=== PATIENT | male | born 1960 | race Caucasian/White ===

== ENCOUNTER 2018-08-20 13:23 | Emergency (ER) | payer BC, SELFPAY ==
[2018-08-20 13:25] VITALS: BP 138/71; PULSE 70; RESP 18; TEMP 36.8; O2SAT 97; BMI 31.4
--- NOTE | 2018-08-20 13:53 | ED.DCSUM_ITS ---
- ER Visit Summary Date of Service: 08/20/18 Chief Complaint: Left-sided back pain History of Present Illness: The patient is a 58 M presents to the emergency department for 1 week of left-sided back pain. Patient states he was walking outside stakes on the grill. He states he opened the door and felt something pull in the left side of his upper back. Since then, he has had a persistent pain. He states it is worse if he lays or moves a certain way. He is been nauseated because of the pain. The patient does admit to history of prior disc rupture and states this feels similar. He denies any history of coronary vascular disease. He denies leg swelling orthopnea. Physical Examination: Vital signs reviewed General: Well-nourished, well-developed Head: Normocephalic, atraumatic Eyes: Pupils equal and reactive, extraocular muscles intact Neck, supple, no lymphadenopathy Heart: Regular rate and rhythm Respiratory: No distress, clear bilaterally Abdomen: Soft, nontender, nondistended, no peritoneal signs Back: Nontender Extremities: Nontender, no edema, no cords Skin: Normal color no rash Neuro: Alert and oriented, no focal or lateralizing deficits Test Results: [] Emergency Department Course and Treatment: The patient's pain does seem entirely muscular. EKG was obtained that showed sinus rhythm without acute ischemia. It was unchanged from prior. However, given the patient's age and the fact that was radiated to his chest did want to rule out dangerous process. Rib series was unremarkable. Screening labs including cardiac enzymes were normal. Patient had pain that is been constant and worse with motion for 7 days. I do feel that this effectively rules him out for acute coronary syndrome. However, the patient's d-dimer was elevated. He underwent CTA which shows no evidence of pulmonary embolus. I am going to treat the patient symptomatically with a short course of analgesics and antispasmodics. He is counseled on concerning symptoms and reasons to return. He will be discharged home. Treatment Plan: [] Disposition: Discharge Impression: 1. Acute thoracic strain This note was generated with [employer] software. It may contain incorrect words, spelling, and punctuation that were not noted in review of the chart prior to signing ED Disposition - Plan for ED Patient: Instructions: BACK SPASM, No Trauma Prescriptions: Prednisone [Deltasone] 60 mg PO DAILY #15 tab Prescription Printed cycloBENZAPRine HCl [Flexeril] 10 mg PO TID PRN #20 tab PRN Reason: Muscle Spasm Prescription Printed Oxycodone HCl/Acetaminophen [Percocet 5/325] 1 tab PO Q6H PRN PRN 3 Days #12 tab PRN Reason: Pain Prescription Printed Referrals: Care Physician,No Primary [Primary Care Provider] -
[2018-08-20] MEDS: 0.9% Normal Saline 1,000 ML 1000 ML IV (14:21)
[2018-08-20] MEDS: Morphine 4 MG/ML Syringe IV (14:21)
[2018-08-20] MEDS: proMETHazine 25 MG/ML Syringe 12.5 MG IV (14:22)
[2018-08-20 14:23] LABS: Absolute Lymphocyte Count 2.19 X10^3/ul (0.83-4.51); Absolute Neutrophil Count 7.8 X10^3/uL (2.0-7.7); Basophil# 0.02 X10^3/uL; Basophil% 0.2 % (0-1); Eosinophil# 0.19 X10^3/uL; Eosinophils% 1.7 % (0-5); Hemoglobin 15.2 g/dl (13.0-16.5); Lymphocyte # 2.19 X10^3/ul (4.0); Lymphocyte % 19.9 % (19-41); Mean Corp Hgb Conc 33.8 g/gl (32-36); Mean Corpuscular Hgb 33.1 pg (27.0-32.0); Mean Platelet Vol. 10.1 fl (6.2-12.0); Monocyte# 0.77 X10^3/uL; Platelet Count 208 K/mm3 (150-450); RBC Distribution Width CV 14.7 % (11.6-14.6); RBC Distribution Width SD 52.8 fl (35.1-43.9); Red Blood Count 4.59 M/mm3 (4.6-6.2)
[2018-08-20 14:25] LABS: POSITIVE COUNT NO; POSITIVE DIFFERENTIAL NO; POSITIVE MORPHOLOGY NO
--- NOTE | 2018-08-20 14:30 | RAD_ITS ---
STUDY: X-RAY - UNILATERAL RIBS ( LEFT ) WITH CHEST REASON FOR EXAM: Male, 58 years old. Mid-level chest, back and rib pain TECHNIQUE - RIBS: 4 view(s) of the ribs. TECHNIQUE - CHEST: PA chest COMPARISON: 02/03/2013 FINDINGS - RIBS: No reported trauma. There is no apparent rib fracture. No apparent lytic or blastic rib lesion. FINDINGS - CHEST: Clear lungs are somewhat hyperlucent and hyperinflated with hemidiaphragm flattening suggesting underlying COPD. Normal cardiomediastinal silhouette, redd and pleural margins. Unremarkable shoulder girdle and spine. RAD/Ribs Uni Min 3V w/PA Chest IMPRESSION: RIBS: No visible fracture or suspicious lesion. CHEST: Suspected underlying COPD/emphysema. Chronic smoking history. No acute cardiopulmonary process. Electronically Signed: Bert Montez MD at 15:25 EDT Tel , Service support ,
[2018-08-20 14:36] LABS: ALB/GLOB Ratio 1.2 RATIO (0.9-2.4); AST(SGOT) 9 U/L (15-37); Alanine Aminotransfer ALT/SGPT 21 U/L (16-61); Albumin, Serum 3.7 g/dL (3.2-5.0); Alkaline Phosphatase 62 U/L (45-117); Anion Gap 5 (5-15); BUN 18 mg/dL (7-18); BUN/Creat Ratio 21.5 RATIO (10-20); Calcium,Total 9.3 mg/dL (8.5-10.1); Chloride 109 mmol/L (98-107); Creatinine, Serum 0.84 mg/dL (0.70-1.30); EST Glomerular Filtration Rate 100 mL/min (>60); Est Glom Filt Rate - Afr Amer 121 mL/min (>60); Estimated Creatinine Clearance 109.65 ml/min; Globulin 3.2 g/dL (2.2-4.2); Glucose 122 mg/dL (74-106); Protein, Total 6.9 g/dL (6.4-8.2); Sodium Level 140 mmol/L (136-145)
[2018-08-20 14:56] LABS: D-Dimer Quantitative (DVT/PE) 0.69 FEU/ug/m (0.27-0.49)
--- NOTE | 2018-08-20 14:57 | CT_ITS ---
STUDY: CTA CHEST REASON FOR EXAM: Male, 58 years old. Left back pain radiating to the left rib, nausea, difficulty sitting. History of GERD. Chest pain. RADIATION DOSAGE (If Supplied By Facility): CTDIvol = ( 18.53 ) mGy, DLP = ( 540.69 ) mGycm TECHNIQUE: The examination was performed with the intravenous administration of 100 IV Isovue 300. Post-processing of the angiographic images was performed, with multiplanar reformation and 3D reconstruction. Individualized dose optimization techniques were used for this CT. COMPARISON: X-ray ribs and chest 08/20/2017, x-ray chest 02/03/2013, CT abdomen and pelvis 03/27/2012 FINDINGS: Supraclavicular: Heterogeneity of the thyroid gland without dominant nodule, possibly a manifestation of thyroiditis or mild goitrous changes. Body wall soft tissues: No acute process. Upper abdomen: There is evidence of hepatic steatosis. Osseous structures: Mild thoracic spondylosis. Normal ribs. No acute osseous process. Mediastinum: Normal esophagus. A few shotty lymph nodes are present in the mediastinum, not pathologically enlarged. There is no apparent hilar lymphadenopathy. Heart: No cardiomegaly or pericardial effusion. Normal coronary artery origins and branching anatomy with right coronary dominance. Trace arthroscopic calcification. Aorta: Normal. Pulmonary arteries: Ectatic central pulmonary arteries, main pulmonary artery 3.7 cm. There is no large central embolus. There is no evidence of peripheral pulmonary embolus. Lungs: There are mild features of paraseptal emphysema predominating at the apices. The lungs are acutely clear. There is mild chronic bronchial wall thickening, chronic inflammatory. Airways otherwise unremarkable. CT/CTA Chest W/WO Contrast IMPRESSION: No acute cardiopulmonary process is evident. There is no evidence of aortic dissection or pulmonary embolus. Trace coronary atherosclerosis with normal coronary artery branching anatomy and normal cardiac chamber morphology. Ectasia of the central pulmonary arteries suggesting a component of pulmonary arterial hypertension likely associated with emphysematous disease. Features of paraseptal emphysema. Electronically Signed: Bert Montez MD at 15:54 EDT Tel , Service support ,
[2018-08-20] MEDS: Ketorolac 15 MG/ML Vial IV (15:51)
--- NOTE | 2018-08-20 16:39 | ED.VISSUMM ---
- ER Visit Summary Date of Service: 08/20/18 Chief Complaint: [] History of Present Illness: The patient is a 58 M [] Physical Examination: [] Test Results: [] Emergency Department Course and Treatment: [] Treatment Plan: [] Disposition: [] Impression: [] This note was generated with [employer] dictation software. It may contain incorrect words, spelling, and punctuation that were not noted in review of the chart prior to signing ED Disposition - Plan for ED Patient: Instructions: BACK SPASM, No Trauma Prescriptions: Prednisone [Deltasone] 60 mg PO DAILY #15 tab Prescription Printed cycloBENZAPRine HCl [Flexeril] 10 mg PO TID PRN #20 tab PRN Reason: Muscle Spasm Prescription Printed Oxycodone HCl/Acetaminophen [Percocet 5/325] 1 tab PO Q6H PRN PRN 3 Days #12 tab PRN Reason: Pain Prescription Printed proMETHazine tablet [Phenergan] 25 mg PO Q6H PRN PRN #10 tab PRN Reason: Nausea Prescription Printed Referrals: Care Physician,No Primary [Primary Care Provider] -
[2018-08-20 16:42] VITALS: BP 122/68; PULSE 55; RESP 17; O2SAT 95
== END 2018-08-20 16:43 | disposition home or self-care (01) ==
PROVIDERS: Emergency Provider Emergency Medicine
DX: S29.012A Strain of muscle and tendon of back wall of thorax, initial encounter (principal); R06.00 Dyspnea, unspecified; R11.0 Nausea; R79.89 Other specified abnormal findings of blood chemistry; X58.XXXA Exposure to other specified factors, initial encounter; Y93.9 Activity, unspecified; Y92.9 Unspecified place or not applicable; Z72.0 Tobacco use
CPT/HCPCS: 71101; 71275; 80053; 84484; 85025; 85379; 93005; 96361; 96374; 96375; 99284; J7030; Q9967; A4216

== ENCOUNTER 2023-01-14 16:17 | Emergency (ER) | payer BC, SELFPAY ==
[2023-01-14 16:19] VITALS: BP 168/83; PULSE 58; RESP 18; TEMP 36.7; O2SAT 98; BMI 30.7
--- NOTE | 2023-01-14 16:54 | CT_ITS ---
INDICATION: abdominal pain -- IV PO Contrast EXAMINATION: CT ABDOMEN AND PELVIS WITH CONTRAST - CT Abdomen And Pelvis W/ Contrast Injection TECHNIQUE: Helically acquired images were obtained of the abdomen and pelvis following IV contrast. A radiation dose optimization technique was used for this scan. IV Contrast dosage and agent: 100 cc Isovue-370 Oral contrast: Gastrografin. COMPARISON: None. FINDINGS: LOWER CHEST: Basilar atelectasis or scarring. No cardiomegaly or pericardial effusion. LIVER: Focal area of possible enhancement adjacent to gallbladder left hepatic lobe measuring 1.6 x 1.8 cm image 55 series 2, coronal image 30 series 601. GALLBLADDER AND BILIARY TREE: No calcified gallstones. No gallbladder distension or wall edema. No intra- or extrahepatic biliary ductal dilation. PANCREAS: No focal cystic or solid mass. SPLEEN: Normal size without focal cystic or solid mass. ADRENAL GLANDS: No nodules. KIDNEYS AND URETERS: Normal renal size and position. No hydronephrosis. Bilateral renal cysts. PERITONEUM: No ascites or free air. No other fluid collection. BOWEL: No evidence of acute appendicitis. Tiny calcification identified within the appendix image 84 series 2. No surrounding inflammatory change. No stomach or bowel distension. No focal inflammatory change. Diverticulosis without diverticulitis. LYMPH NODES: No enlarged mesenteric or retroperitoneal lymph nodes. VESSELS: Aorta is non-dilated. Atherosclerosis. Ureters. URINARY BLADDER: Unremarkable. REPRODUCTIVE ORGANS: No pelvic masses. ABDOMINAL WALL: No discrete abdominal or pelvic wall hernia. BONES: No lytic or blastic abnormality. Degenerative changes of the spine are present. CT/Abdomen/Pelvis WITH Contrast IMPRESSION: No acute focal inflammatory process is identified within the abdomen or pelvis. Question focal hepatic lesion, not characterized. It is conceivable that this is related to fatty sparing. In the absence of prior studies demonstrating stability, consider follow-up MRI non-emergently if this patient is a candidate. Electronically Signed: Tobin Sutton MD at 19:32 EST ,
[2023-01-14] MEDS: Ondansetron 4 MG/2 ML Vial IV (17:03)
--- NOTE | 2023-01-14 17:08 | EX.ED.DYSGE1 ---
HPI History of Present Illness Chief Complaint: Nausea/Vomiting Informant: patient Narrative Narrative: 62-year-old male presenting to the emergency room with abdominal pain and nausea. Patient states that in years past he was diagnosed twice with stomach ulcers at the junction box. He states that he gave up drugs and alcohol years ago. He is a smoker. He states that earlier the past couple months and more so over the last month he wakes up each morning with nausea. He states that if he is able to get something to eat the nausea surpasses and is able to go throughout his day. However if he starts to vomit he is nauseous almost all day. He notes no pain with it but then he starts to tell me how he has lower abdominal pain. No weight gain no weight loss. No black or bloody stools. No diarrhea or mucousy stools. He states that his thinks he may have Crohn's. He states that he has a dairy intolerance. He used to take promethazine which would help him in the past. Lately he has been trying cannabis in the morning but states it runs his whole day is not able to get much done. He reports a colonoscopy about 7 years ago at an outside facility. He states that they found polyps but otherwise negative. [facility] Medical History History of cocaine abuse Home Medications cyclobenzaprine 10 mg tablet 10 mg PO TID PRN Muscle Spasm #20 tabs 08/20/18 [Rx Last Taken Unknown] prednisone 20 mg tablet 60 mg (3 x 20 mg) PO DAILY #15 tabs 08/20/18 [Rx Last Taken Unknown] promethazine 25 mg tablet 25 mg PO Q6H PRN PRN Nausea #10 tabs 08/20/18 [Rx Last Taken Unknown] Allergy/AdvReac Type Severity Reaction Status Date / Time Penicillins Allergy Unknown Verified 01/14/23 16:19 Social History Smoking Status: Current every day smoker tobacco type: cigarettes ROS ROS ED Constitutional Constitutional ED: Denies chills, fever(s) or weight loss Eyes Eyes: Denies change in vision or diplopia ENT ENT ED: Denies ear pain, rhinorrhea or sore throat Cardiovascular Cardiovascular: Denies chest pain, orthopnea, palpitations or racing heartbeat Respiratory/Chest Respiratory/Chest: Denies cough, dyspnea or orthopnea Gastrointestinal Gastrointestinal: Reports abdominal pain and nausea; Denies diarrhea or vomiting Genitourinary Genitourinary ED: Denies dysuria, hematuria or urinary frequency Musculoskeletal Musculoskeletal: Denies arthralgias, back pain, myalgias or neck pain Integumentary Denies abscess or rash Neurologic Neurologic: Denies headache(s) or weakness Psychiatric Psychiatric: Denies anxiety, depression, suicidal ideation or suicidal thoughts Endocrine Endocrinology: Denies polydipsia, polyphagia or polyuria Allergic/Immunologic Allergic/Immunologic ED: Denies mouth swelling, tongue swelling or urticaria EXAM Physical Exam Const Vital Signs: 01/14/23 16:19 Temperature 98.0 F Temperature Source Temporal Pulse Rate 58 L Respiratory Rate 18 Blood Pressure 168/83 H Blood Pressure Mean 111 Pulse Ox 98 Oxygen Delivery Method Room Air Discharge Plan Triage Chief Complaint: Nausea/Vomiting ED Provider: Rogelio Murillo Dx/Rx/DC Orders Prescriptions: No Action cyclobenzaprine 10 MG tablet 10 mg PO TID PRN (Reason: Muscle Spasm) Qty: 20 0RF prednisone 20 MG tablet 60 mg PO DAILY Qty: 15 0RF Rx Instructions: With food promethazine 25 MG tablet 25 mg PO Q6H PRN PRN (Reason: Nausea) Qty: 10 0RF Primary Care Provider: Care Physician,No Primary Referrals: Care Physician,No Primary [Primary Care Provider] -
[2023-01-14 17:11] LABS: Absolute Lymphocyte Count 1.73 X10^3/uL (0.83-4.51); Basophil# 0.05 X10^3/uL; Basophil% 0.8 % (0-1); Eosinophils% 1.6 % (0-5); Hematocrit 46.1 % (40-54); Hemoglobin 15.1 g/dL (13.0-16.5); Lymphocyte # 1.73 X10^3/ul (0.83-4.51); Lymphocyte % 26.9 % (19-41); Mean Corp Hgb Conc 32.8 g/dL (32-36); Mean Corpuscular Hgb 32.3 pg (27.0-32.0); Mean Corpuscular Volume 98.5 fL (80-94); Mean Platelet Vol. 10.2 fl (6.2-12.0); Monocyte# 0.56 X10^3/uL; Monocyte% 8.7 % (0-10); NRBC Flagged by Analyzer 0 % (0-5); Neutrophil # 3.96 X10^3/uL (2.7-7.7); Neutrophil % 61.7 % (47-70); Platelet Count 218 K/mm3 (150-450); RBC Distribution Width SD 51.2 fl (35.1-43.9); Red Blood Count 4.68 M/mm3 (4.6-6.2); White Blood Count 6.4 K/mm3 (4.4-11.0)
[2023-01-14 17:27] LABS: AST(SGOT) 13 U/L (15-37); Alanine Aminotransfer ALT/SGPT 19 U/L (16-61); Albumin, Serum 3.5 g/dL (3.2-5.0); Alkaline Phosphatase 68 U/L (45-117); Anion Gap 3 (5-15); BUN 11 mg/dL (7-18); BUN/Creat Ratio 12.5 RATIO (10-20); Bilirubin, Direct 0.09 mg/dL (0.00-0.30); Calcium,Total 8.5 mg/dL (8.5-10.1); Chloride 109 mmol/L (98-107); Creatinine, Serum 0.88 mg/dL (0.70-1.30); EST Glomerular Filtration Rate 93 mL/min (>60); Est Glom Filt Rate - Afr Amer 113 mL/min (>60); Estimated Creatinine Clearance 99.62 ml/min; Globulin 3.5 g/dL (2.2-4.2); Glucose 132 mg/dL (74-106); Lipase 16 U/L (13-75); Potassium 3.6 mmol/L (3.5-5.1); Sodium Level 139 mmol/L (136-145)
[2023-01-14] MEDS: proMETHazine 25 MG Tablet PO (18:18)
[2023-01-14 19:24] VITALS: BP 179/97; PULSE 55; RESP 16; O2SAT 97
[2023-01-14] MEDS: Ketorolac 30 MG/ML Syringe IV (20:00)
[2023-01-14 20:03] VITALS: BP 140/77; PULSE 52; RESP 16; O2SAT 97
== END 2023-01-14 20:36 | disposition home or self-care (01) ==
PROVIDERS: Emergency Provider Emergency Medicine; Visit Provider Emergency Medicine
DX: R11.2 Nausea with vomiting, unspecified (principal); F17.210 Nicotine dependence, cigarettes, uncomplicated
CPT/HCPCS: 74177; 80048; 80076; 83690; 85025; 96374; 96375; 99283; Q9967; A4216; J2405

== ENCOUNTER 2023-01-18 07:02 | Emergency (ER) | payer BC, SELFPAY ==
[2023-01-18 07:03] VITALS: BP 145/83; PULSE 67; RESP 14; TEMP 36.2; O2SAT 97; BMI 29.6
--- NOTE | 2023-01-18 07:50 | EX.ED.DYSGE1 ---
HPI History of Present Illness Chief Complaint: Nausea/Vomiting Informant: patient and spouse/S.O. Narrative Narrative: Presents to ED recurrent vomiting. He has been having nausea for a month states for the past week has been having intermittent vomiting. He was seen in the ED here 5 days ago. Had lab work and a CAT scan. He states he was sent home with 4 medications. Initially was feeling better however went home vomiting started again. He states he vomited probably 100 times. He has been having very small bowel movements twice a day nonbloody. States when he vomits or may be streaks of blood. However nothing heavy. Denies alcohol history. Denies abdominal pain. He was able to eat little bit yesterday however since then unable keep things down. No abdominal surgeries. Review of records sent home Carafate pantoprazole as needed Phenergan and diclofenac. He is given follow-up with eye. [facility] Medical History History of cocaine abuse Home Medications NK 01/14/23 [History Last Taken Unknown] diclofenac sodium 50 mg tablet,delayed release 50 mg PO BID PRN pain #30 tabs 01/14/23 [Rx Last Taken Unknown] pantoprazole 40 mg tablet,delayed release (Protonix) 40 mg PO DAILY #30 tabs 01/14/23 [Rx Last Taken Unknown] promethazine 25 mg tablet 25 mg PO TID PRN nausea and vomiting #30 tabs 01/14/23 [Rx Last Taken Unknown] sucralfate 1 gram tablet (Carafate) 1 g PO QHS PRN #30 tabs 01/14/23 [Rx Last Taken Unknown] Allergy/AdvReac Type Severity Reaction Status Date / Time Penicillins Allergy Unknown Verified 01/18/23 07:04 Social History Smoking Status: Current every day smoker tobacco type: cigarettes ROS ROS ED Constitutional Constitutional ED: Denies chills, fever(s) or sweats Eyes Eyes: Denies change in vision ENT ENT ED: Denies dysphagia or sore throat Cardiovascular Cardiovascular: Denies chest pain, leg edema, palpitations or racing heartbeat Respiratory/Chest Respiratory/Chest: Denies cough, dyspnea or dyspnea on exertion Gastrointestinal Gastrointestinal: Reports nausea and vomiting; Denies abdominal pain or diarrhea Genitourinary Genitourinary ED: Denies dysuria, hematuria or urinary frequency Musculoskeletal Musculoskeletal: Denies back pain, extremity pain or neck pain Integumentary Denies rash or wounds Neurologic Neurologic: Denies headache(s), paresthesias or weakness EXAM Physical Exam Const Vital Signs: 01/18/23 07:03 01/18/23 10:50 01/18/23 12:16 Temperature 97.2 F L Temperature Source Temporal Pulse Rate 67 68 82 Respiratory Rate 14 17 16 Blood Pressure 145/83 H 125/79 H 124/79 H Blood Pressure Mean 103 94 94 Pulse Ox 97 98 97 Oxygen Delivery Method Room Air Room Air Positive well nourished and well developed General Appearance ED: well developed and NAD HEENT Reports dry mucous membranes normocephalic and atraumatic Mouth ED: Yes dry mucous membranes Mouth: dry mucous membranes Eyes PERRL, EOMs intact bilaterally and conjunctivae normal General Eye ED: Yes normal appearance of both eyes Neck no lymphadenopathy and supple General: Negative for tenderness Chest Wall Chest: Negative for tenderness Resp normal respiratory effort and normal air movement Effort and Inspection: symmetric chest movement; Negative for respiratory distress Cardio regular rate, regular rhythm and no murmurs Peripheral Pulses: pulses 2+ throughout GI normal to inspection, nondistended, normoactive bowel sounds and non-tender GI Narrative: Negative Lamas's or McBurney's tenderness. No guarding or rebound. Palpation: Negative for guarding or rebound tenderness present Back/Spine no CVA tenderness and no thoracic nor lumbar tenderness Extremity normal to inspection General Extremety ED: Negative for edema or tenderness General Extremity: Negative for edema Neuro oriented x3 and no sensory deficits noted Sensorium / Orientation: awake and alert Skin no rashes or lesions noted and no wounds MDM MDM MDM Narrative Medical decision making narrative: Interventions / MDM: Differential diagnosis: Dehydration, electrolyte abnormalities Diagnosis considered but do not suspect: No clinical cholecystitis. My EKG interpretation: N/A Imaging independently reviewed and interpreted by myself: N/A External documents reviewed: Review of records from ED CT scan abdomen pelvis with oral and IV contrast showed no acute process. Abdominal laboratory studies were all normal including kidney function. Test considered but not ordered:N/A ED course: Patient dry mucosal membranes with vomiting has a nonsurgical abdomen. IV will be established for fluids Zofran given. Abdominal labs obtained for further evaluation. 0940: Abdominal labs are all normal. Reevaluation is still having nausea and vomiting and lower abdominal cramping. Still soft. Will order labs and additional antiemetic. Will reevaluate. 1045: Intermittent bouts of retching heard. Reevaluation no vomiting however feels nausea again. Further discussion with the patient he started marijuana use 3 weeks ago stating for nausea. Discussed effects could be similar to his symptoms due to marijuana use. Will use capsaicin and Haldol. 1145: Reevaluation clinically feeling much better symptoms are resolved. He was using marijuana twice a day for the last 3 weeks. He will stop this. We will p.o. challenge before discharge. Patient tolerated oral fluids well. He will refrain from marijuana. He has prescriptions for Phenergan at home. He is on Carafate and pantoprazole. He is given GI for follow-up. He is sent home with capsaicin cream. Re-evaluation: stable Disposition discussed with patient/family/significant other: Patient and spouse Case discussed with consulting clinician: N/A This note was generated with [employer] dictation software. It may contain incorrect words, spelling, and punctuation that were not noted in checking the note before signing. Lab Data Attestation: I reviewed the patient's lab results. Labs: Laboratory Results - last 24 hr 01/18/23 08:00 WBC 10.9 RBC 4.93 Hgb 16.2 Hct 48.3 MCV 98.0 H MCH 32.9 H MCHC 33.5 RDW Std Deviation 51.8 H RDW Coeff of Tiffany 14.2 Plt Count 220 MPV 10.8 Immature Gran % (Auto) 0.400 Neut % (Auto) 80.7 H Lymph % (Auto) 12.2 L Trimble % (Auto) 5.7 Eos % (Auto) 0.6 Baso % (Auto) 0.4 Absolute Neuts (auto) 8.8 H Absolute Lymphs (auto) 1.33 Nucleated RBC % 0 Sodium 137 Potassium 3.9 Chloride 109 H Carbon Dioxide 22.0 Anion Gap 6 BUN 13 Creatinine 0.95 Estim Creat Clear Calc 92.28 Est GFR (MDRD) Af Amer 104 Est GFR (MDRD) Non-Af 86 BUN/Creatinine Ratio 13.7 Glucose 143 H Calcium 9.6 Total Bilirubin 0.50 AST 19 ALT 22 Alkaline Phosphatase 72 Total Protein 7.7 Albumin 3.8 Globulin 3.9 Albumin/Globulin Ratio 1.0 Lipase 12 L Discharge Plan Triage Chief Complaint: Nausea/Vomiting ED Provider: Guerrero Humphreys Dx/Rx/DC Orders Clinical Impression: Marijuana use, Abdominal pain, Cannabinoid hyperemesis syndrome Instructions: Cannabinoid Hyperemesis Syndrome Prescriptions: No Action NK diclofenac sodium 50 mg tablet,delayed release (DR/EC) 50 mg PO BID PRN (Reason: pain) Qty: 30 0RF pantoprazole [Protonix] 40 mg tablet,delayed release (DR/EC) 40 mg PO DAILY Qty: 30 0RF sucralfate [Carafate] 1 gram tablet 1 g PO QHS PRN Qty: 30 0RF promethazine 25 mg tablet 25 mg PO TID PRN (Reason: nausea and vomiting) Qty: 30 0RF Primary Care Provider: Care Physician,No Primary Referrals: Gene Jiménez DO [Med Staff - Active Staff] - 1-2 Weeks Care Physician,No Primary [Primary Care Provider] - Activity Restrictions/Additional Instructions: Labs are stable, you admit to starting marijuana for last 3 weeks prior to symptoms starting. Stop marijuana use. Patient oral fluids for hydration at home. Follow-up with Dr. Jiménez as given to you on your last visit. Home medications as prescribed. Disposition Disposition: Home, Self Care Discharge Date/Time: 01/18/23 12:20
[2023-01-18] MEDS: 0.9% Normal Saline (1000mL) 1,000 ML 1000 ML IV (08:05)
[2023-01-18] MEDS: Ondansetron 4 MG/2 ML Vial IV (08:05)
[2023-01-18 08:08] LABS: Absolute Lymphocyte Count 1.33 X10^3/uL (0.83-4.51); Absolute Neutrophil Count 8.8 X10^3/uL (2.0-7.7); Basophil# 0.04 X10^3/uL; Basophil% 0.4 % (0-1); Eosinophil# 0.06 X10^3/uL; Eosinophils% 0.6 % (0-5); Hematocrit 48.3 % (40-54); Hemoglobin 16.2 g/dL (13.0-16.5); Lymphocyte # 1.33 X10^3/ul (0.83-4.51); Lymphocyte % 12.2 % (19-41); Mean Corp Hgb Conc 33.5 g/dL (32-36); Mean Corpuscular Hgb 32.9 pg (27.0-32.0); Mean Platelet Vol. 10.8 fl (6.2-12.0); Monocyte# 0.62 X10^3/uL; Monocyte% 5.7 % (0-10); NRBC Flagged by Analyzer 0 % (0-5); Neutrophil % 80.7 % (47-70); Platelet Count 220 K/mm3 (150-450); RBC Distribution Width CV 14.2 % (11.6-14.6); RBC Distribution Width SD 51.8 fl (35.1-43.9); Red Blood Count 4.93 M/mm3 (4.6-6.2); White Blood Count 10.9 K/mm3 (4.4-11.0)
[2023-01-18 08:45] LABS: Albumin, Serum 3.8 g/dL (3.2-5.0); BUN 13 mg/dL (7-18); BUN/Creat Ratio 13.7 RATIO (10-20); Creatinine, Serum 0.95 mg/dL (0.70-1.30); EST Glomerular Filtration Rate 86 mL/min (>60); Est Glom Filt Rate - Afr Amer 104 mL/min (>60); Estimated Creatinine Clearance 92.28 ml/min; Globulin 3.9 g/dL (2.2-4.2); Glucose 143 mg/dL (74-106); Protein, Total 7.7 g/dL (6.4-8.2)
[2023-01-18 08:46] LABS: AST(SGOT) 19 U/L (15-37); Alanine Aminotransfer ALT/SGPT 22 U/L (16-61); Alkaline Phosphatase 72 U/L (45-117); Anion Gap 6 (5-15); Calcium,Total 9.6 mg/dL (8.5-10.1); Chloride 109 mmol/L (98-107); Lipase 12 U/L (13-75); Potassium 3.9 mmol/L (3.5-5.1); Sodium Level 137 mmol/L (136-145)
[2023-01-18] MEDS: Metoclopramide 10 MG/2 ML Vial 5 MG IV (10:22)
[2023-01-18] MEDS: Hyoscyamine Sulfate 0.125 MG Tablet 0.25 MG SL (10:22)
[2023-01-18 10:50] VITALS: BP 125/79; PULSE 68; RESP 17; O2SAT 98
[2023-01-18] MEDS: Haloperidol Lactate 5 MG/ML Vial 2 MG IV (10:51)
[2023-01-18] MEDS: Capsaicin 0.025% 1 APPLIC Tube TOPICAL (11:17)
[2023-01-18 12:16] VITALS: BP 124/79; PULSE 82; RESP 16; O2SAT 97
== END 2023-01-18 12:20 | disposition home or self-care (01) ==
PROVIDERS: Emergency Provider Emergency Medicine; Visit Provider Emergency Medicine
DX: F12.988 Cannabis use, unspecified with other cannabis-induced disorder (principal); R11.2 Nausea with vomiting, unspecified; F17.210 Nicotine dependence, cigarettes, uncomplicated; R10.9 Unspecified abdominal pain
CPT/HCPCS: 80053; 83690; 85025; 96361; 96374; 96375; 99283; J7030; A4216; J2405

== ENCOUNTER 2023-05-07 05:59 | Emergency (ER) | payer OTHER, SELFPAY ==
[2023-05-07 06:00] VITALS: BP 195/170; PULSE 91; RESP 16; TEMP 36.2; O2SAT 95; BMI 32.2
--- NOTE | 2023-05-07 06:06 | CT_ITS ---
STUDY: CT ABDOMEN AND PELVIS WITH CONTRAST REASON FOR EXAM: Male, 63 years old. Abdominal pain. Nausea and vomiting. RADIATION DOSAGE (If Supplied By Facility): CTDIvol = ( 22 ) mGy, DLP = ( 1185 ) mGycm TECHNIQUE: Transaxial images were obtained through the abdomen and pelvis without oral contrast. 100 ml of Isovue-370 contrast was administered. Sagittal and coronal images were reconstructed. Individualized dose optimization techniques were used for this CT. COMPARISON: Prior study dated: 01/14/2023 FINDINGS: LOWER THORAX: The visualized lung bases are clear. The visualized portions of the heart and pericardium are within normal limits. GALLBLADDER / BILE DUCTS: There are no calcified gallstones present. There is no intrahepatic biliary duct dilatation. The common bile duct is normal in caliber. There are no calcified ductal stones. LIVER: The liver is enlarged and there is diffuse fatty infiltration noted. SPLEEN: The spleen is normal in size. PANCREAS: The pancreas is within normal limits. ADRENAL GLANDS: The adrenal glands are within normal limits. KIDNEYS / BLADDER: There are no renal or ureteral stones. There is no hydronephrosis. There are stable bilateral simple renal cysts. The urinary bladder is partially distended and appears grossly unremarkable. STOMACH / BOWEL: Normal visualized stomach. There is no bowel obstruction or inflammation. The appendix is visualized and appears normal. PERITONEUM/RETROPERITONEUM: There is no abdominal or pelvic free air, free fluid or fluid collection. There is no abnormal soft tissue mass identified. There is no abdominal or pelvic lymphadenopathy. VESSELS: The aorta is normal in caliber. The IVC is unremarkable. BONES: There are no destructive osseous lesions. SOFT TISSUES: The visualized soft tissues are within normal limits. CT/Abdomen/Pelvis W IV Cont ONLY IMPRESSION: No acute abdominal or pelvic pathology. Enlarged, fatty liver. Electronically Signed: Khanh Fonseca MD at 8:28 EDT ,
--- NOTE | 2023-05-07 06:07 | EDS_ITS ---
HPI History of Present Illness Chief Complaint: Nausea/Vomiting Narrative Narrative: 63-year-old male who states he has problems with his stomach has had nausea and vomiting for the last 3 days. He had diarrhea 2 days ago. He states that he has been seen a few times in the emergency department with continued nausea and vomiting. No prior surgeries. No fevers or chills. He dry heaves and that he has phlegm that comes up. He supposed to be following up with a specialist in the future because he states they saw something on my stomach. He states that he has not smoked marijuana since December when he was seen for nausea and vomiting. [facility] Medical History Back pain Chronic back pain GERD (gastroesophageal reflux disease) History of cocaine abuse History of stomach ulcers Home Medications pantoprazole 40 mg tablet,delayed release (Protonix) 40 mg PO DAILY #90 tabs 02/16/23 [Rx Last Taken Unknown] ondansetron 4 mg disintegrating tablet 4 mg PO Q8H PRN nausea and vomiting #30 tabs 05/02/23 [Rx Last Taken Unknown] ondansetron 4 mg disintegrating tablet 4 mg PO Q8H PRN PRN Nausea #20 tabs 05/07/23 [Rx Last Taken Unknown] sucralfate 1 gram tablet (Carafate) 1 g PO BID #20 tabs 05/07/23 [Rx Last Taken Unknown] Allergy/AdvReac Type Severity Reaction Status Date / Time Penicillins Allergy Unknown Verified 04/11/23 09:09 Family History Mother Cancer Father Emphysema lung Social History Smoking Status: Current every day smoker tobacco type: cigarettes alcohol intake: never substance use type: former substance user, marijuana and crack/cocaine what type of physical activity do you participate in: walking ROS ROS ED ROS Narrative Constitutional: No fever, no chills. HEENT: No sore throat. No neck pain. No loss of vision. No rhinorrhea. Cardiovascular: No chest pain. No palpitations. No pedal edema. Respiratory: No cough, no shortness of breath. Abdominal: Positive periumbilical abdominal pain. Multiple episodes of nausea and vomiting/dry heaving and gagging. Genitourinary: No dysuria. No hematuria. Musculoskeletal: No myalgias. No arthralgias. Neurologic: No headaches. No dizziness. No lightheadedness. Skin: No rash. No change in color. Psychiatric: No depression. No anxiety. EXAM Physical Exam Narrative Exam Narrative: Afebrile. Vital signs noted. HEENT: Normocephalic. Atraumatic. PERRL, EOMI. Neck soft and supple. No point tenderness or step off. Cardiovascular: Regular rate and rhythm. No murmurs, rubs, or gallops appreciated. Respiratory: No tachypnea. Lungs clear to auscultation bilaterally. Gastrointestinal: Abdomen soft, nontender, with normoactive bowel sounds. No rebound or guarding. Positive gagging and dry heaving. Neurological: Awake. Alert. Nonfocal, nonlateralizing. Skin: No rash. Normal color. No pallor. Musculoskeletal: No pedal edema. Full range of motion extremities. Const Vital Signs: 05/07/23 06:00 05/07/23 07:30 Temperature 97.1 F L Temperature Source Temporal Pulse Rate 91 89 Respiratory Rate 16 16 Blood Pressure 195/170 H 146/92 H Blood Pressure Mean 178 110 Pulse Ox 95 98 Oxygen Delivery Method Room Air Room Air MDM MDM MDM Narrative Medical decision making narrative: I reviewed the patient's prior records. He had been using marijuana more frequently in the past. He states he has not used since then. He may have cyclic vomiting as well. Concern would be for dehydration and electrolyte imbalance given his profuse retching over the last 3 days. Pancreatitis is in the differential as well, along with bowel obstruction. Clinically, do not feel that he has a bowel obstruction and his pain is more periumbilical. He will be bolused IV fluids and administered ondansetron, Ativan, and Pepcid initially for cyclic vomiting. I will obtain a CT of the abdomen and pelvis with IV contrast and obtain baseline laboratories such as CBC, CMP, and lipase. I reviewed his laboratory work and he has slight leukocytosis of 11.5 which I think is nonspecific, hemoglobin 16.2, hematocrit 49.1, platelet count normal at 193. CMP was obtained and reviewed and he has a glucose elevated at 166 with a normal anion gap of 9, BUN of 13 and creatinine 1.25. AST is slightly elevated at 52 but this appears chronic with slight elevation when compared to prior labs. Lipase is low at less than 10. After initial doses of Ativan, Pepcid, and ondansetron, he is no longer dry heaving. While he requested something for his abdominal pain, I do not feel narcotics are currently indicated so he will be administered Bentyl 20 mg along with the second step for cyclic vomiting which is Benadryl and chlorpromazine. The CT of his abdomen pelvis is currently pending. At this point in time, he will be signed out to the oncoming physician to reassess the patient reviewed the CT report of the abdomen and pelvis to help rule out obstruction. Patient states that last time he had a CT back in December, he was told by his primary care provider that they saw something . I did review his prior CT in the has a spot on the lobe of his liver that may require outpatient imaging that measures 1.6 x 1.[address] results and control of his retching, he may have more of cyclic vomiting, and I do feel that he may require follow-up with GI and that he could be discharged. His disposition is pending currently. Patient is stable condition. History & Record Review Discussion w/independent historian: Patient Lab Data Attestation: I reviewed the patient's lab results. Labs: Laboratory Results - last 24 hr 05/07/23 06:00 WBC 11.5 H RBC 4.97 Hgb 16.2 Hct 49.1 MCV 98.8 H MCH 32.6 H MCHC 33.0 RDW Std Deviation 56.2 H RDW Coeff of Tiffany 15.4 H Plt Count TNP MPV 11.1 Immature Gran % (Auto) 0.600 Neut % (Auto) 66.5 Lymph % (Auto) 24.2 [place] % (Auto) 7.7 Eos % (Auto) 0.4 Baso % (Auto) 0.6 Absolute Neuts (auto) 7.6 Absolute Lymphs (auto) 2.78 Nucleated RBC % 0 Platelet Estimate ADEQUATE Sodium 136 Potassium 4.3 Chloride 102 Carbon Dioxide 25.0 Anion Gap 9 BUN 13 Creatinine 1.25 Estim Creat Clear Calc 79.96 Est GFR (MDRD) Af Amer 75 Est GFR (MDRD) Non-Af 62 BUN/Creatinine Ratio 10.4 Glucose 166 H Calcium 9.7 Total Bilirubin 0.90 AST 52 H ALT 42 Alkaline Phosphatase 65 Total Protein 8.3 H Albumin 4.3 Globulin 4.0 Albumin/Globulin Ratio 1.1 Lipase < 10 L Discharge Plan Triage Chief Complaint: Nausea/Vomiting ED Provider: Reji Romo Dx/Rx/DC Orders Clinical Impression: Nausea and vomiting, Abdominal pain Instructions: ED Cyclic Vomiting Syndrome, ED Abdominal Pain Unkn Cause Male... Prescriptions: New ondansetron 4 mg tablet,disintegrating 4 mg PO Q8H PRN PRN (Reason: Nausea) Qty: 20 0RF sucralfate [Carafate] 1 gram tablet 1 g PO BID Qty: 20 0RF No Action pantoprazole [Protonix] 40 mg tablet,delayed release (DR/EC) 40 mg PO DAILY Qty: 90 1RF ondansetron 4 mg tablet,disintegrating 4 mg PO Q8H PRN (Reason: nausea and vomiting) Qty: 30 0RF Primary Care Provider: Nurys Soares Referrals: Care Physician,No Primary [Non-Staff] - Disposition Disposition: Home, Self Care
[2023-05-07] MEDS: Lorazepam 2 MG/ML WCH Syringe 0.5 MG IV (06:15)
[2023-05-07] MEDS: Ondansetron 4 MG/2 ML Vial IV (06:15)
[2023-05-07] MEDS: Famotidine 200 MG/20 ML MDV 20 MG in 0.9% Normal Saline (Pres. free 8 ML 300 MG IV (06:16)
[2023-05-07 06:17] LABS: Absolute Lymphocyte Count 2.78 X10^3/uL (0.83-4.51); Absolute Neutrophil Count 7.6 X10^3/uL (2.0-7.7); Basophil# 0.07 X10^3/uL; Basophil% 0.6 % (0-1); Eosinophil# 0.05 X10^3/uL; Eosinophils% 0.4 % (0-5); Hematocrit 49.1 % (40-54); Hemoglobin 16.2 g/dL (13.0-16.5); Lymphocyte # 2.78 X10^3/ul (0.83-4.51); Lymphocyte % 24.2 % (19-41); Mean Corpuscular Hgb 32.6 pg (27.0-32.0); Mean Corpuscular Volume 98.8 fL (80-94); Mean Platelet Vol. 11.1 fl (6.2-12.0); Monocyte# 0.88 X10^3/uL; Monocyte% 7.7 % (0-10); NRBC Flagged by Analyzer 0 % (0-5); Neutrophil # 7.64 X10^3/uL (2.7-7.7); Neutrophil % 66.5 % (47-70); POSITIVE COUNT YES; RBC Distribution Width CV 15.4 % (11.6-14.6); RBC Distribution Width SD 56.2 fl (35.1-43.9); Red Blood Count 4.97 M/mm3 (4.6-6.2); White Blood Count 11.5 K/mm3 (4.4-11.0)
[2023-05-07 06:21] LABS: Differential Indicated SCAN CRITERIA MET
[2023-05-07] MEDS: 0.9% Normal Saline (1000mL) 1,000 ML 1000 ML IV (06:21)
[2023-05-07 06:40] LABS: ALB/GLOB Ratio 1.1 RATIO (0.9-2.4); AST(SGOT) 52 U/L (15-37); Alanine Aminotransfer ALT/SGPT 42 U/L (16-61); Albumin, Serum 4.3 g/dL (3.2-5.0); Alkaline Phosphatase 65 U/L (45-117); Anion Gap 9 (5-15); BUN 13 mg/dL (7-18); BUN/Creat Ratio 10.4 RATIO (10-20); Calcium,Total 9.7 mg/dL (8.5-10.1); Chloride 102 mmol/L (98-107); Creatinine, Serum 1.25 mg/dL (0.70-1.30); EST Glomerular Filtration Rate 62 mL/min (>60); Est Glom Filt Rate - Afr Amer 75 mL/min (>60); Estimated Creatinine Clearance 79.96 ml/min; Glucose 166 mg/dL (74-106); Lipase < 10 U/L (13-75); Potassium 4.3 mmol/L (3.5-5.1); Protein, Total 8.3 g/dL (6.4-8.2); Sodium Level 136 mmol/L (136-145)
[2023-05-07] MEDS: Dicyclomine 20 MG/2 ML Vial IM (06:49)
[2023-05-07 07:10] LABS: Platelet Estimate ADEQUATE (ADEQ)
[2023-05-07] MEDS: DiphenhydrAMINE 50 MG, ChlorproMAZINE IM 25 MG in 0.9% Normal Saline (100mL Bag) 100 ML 204 MG IV (07:28)
[2023-05-07 07:30] VITALS: BP 146/92; PULSE 89; RESP 16; O2SAT 98
--- OUTSIDE RECORDS SUMMARY | 2023-05-07 07:46 | XMS RPT_ITS | CCD ---
Author Name Unknown Address [address] [place] [address] Organization [facility] Care Team Providers Care Diesel Electrician Name Role Phone ROSEMARIE FRANCES Referring Unavailable ROSEMARIE FRANCES Consulting Unavailable ROSALES IRWIN MD Attending Unavailable ROSALES IRWIN MD Primary Care Unavailable ROSALES IRWIN MD Admitting Unavailable PROVIDER, UNKNOWN Consulting Unavailable PROVIDER, UNKNOWN Consulting Unavailable PROVIDER, UNKNOWN Consulting Unavailable Allergies Allergy Classification Reported Allergen(s) Allergy Type Date of Onset Reaction(s) Facility (1 source) Penicillins Drug allergy (disorder) [facility] Repository Problems Problem Classification Problem Date Documented Date Episodic/Chronic Allergic reactions (1 source) Allergy status to penicillin; Translations: [Allergy status to penicillin] Onset: 04-07-2023 Episodic Diverticulosis and diverticulitis (1 source) Diverticulitis of large intestine without perforation or abscess without bleeding; Translations: [Diverticulitis of large intestine without perforation or abscess without bleeding] Onset: 04-07-2023 Chronic Fluid and electrolyte disorders (1 source) Dehydration; Translations: [Dehydration] Onset: 04-07-2023 Episodic Gastroduodenal ulcer (except hemorrhage) (1 source) Personal history of peptic ulcer disease; Translations: [Personal history of peptic ulcer disease] Onset: 04-07-2023 Episodic Nausea and vomiting (2 sources) Nausea with vomiting, unspecified; Translations: [Nausea with vomiting, unspecified] Onset: 04-07-2023 Episodic Neoplasms of unspecified nature or uncertain behavior (1 source) Neoplasm of uncertain behavior of other specified digestive organs; Translations: [Neoplasm of uncertain behavior of other specified digestive organs] Onset: 04-07-2023 Episodic Substance-related disorders (1 source) Cannabis use, unspecified, uncomplicated; Translations: [Cannabis use, unspecified, uncomplicated] Onset: 04-07-2023 Episodic Results Test Name Value Interpretation Reference Range Facil ity Encounters Encounter Date Encounter Type Care Provider Facility Start: 04-07-2023 End: 04-08-2023 ambulatory ROSEMARIE Bennett [facility] Procedures Date Procedure Procedure Detail Performing Clinician Start: 04-07-2023 Urinalysis ROSEMARIE SALAZAR EY Payers Date Payer Category Payer Unknown [id number] Unknown [id number] Summary Purpose Family History No Family History Records Found Advance Directives No Advanced Directives Records Found Additional Source Comments (unrecognized sect ion and content) No Status Records Found INFORMATION SOURCE (unrecogn ized section and content) FOR RECORDS PERTAINING TO PATIENTS WHO ARE OR HAVE BEEN ENROLLED IN A CHEMICAL DEPENDENCY/SUBSTANCEABUSE PROGRAM, SOME INFORMATION MAY BE OMITTED. This clinical summary was aggregated from multiple sources. Caution should be exercised in using it in the provision of clinical care. This summary normalizes information from multiple sources, and as a consequence, information in this document may materially change the coding, format and clinical context of patient data. In addition, data may be omitted in some cases. CLINICAL DECISIONS SHOULD BE BASED ON THE PRIMARY CLINICAL RECORDS. [employer] provides no warranty or guarantee of the accuracy or completeness of information in this document.
[2023-05-07 08:39] VITALS: BP 138/92; PULSE 92; RESP 16; TEMP 36.6; O2SAT 99
== END 2023-05-07 08:41 | disposition home or self-care (01) ==
PROVIDERS: Emergency Provider Emergency Medicine; PCP Internal Medicine; Visit Provider Emergency Medicine
DX: R10.9 Unspecified abdominal pain (principal); R11.2 Nausea with vomiting, unspecified; K21.9 Gastro-esophageal reflux disease without esophagitis; Z79.899 Other long term (current) drug therapy; F17.210 Nicotine dependence, cigarettes, uncomplicated
CPT/HCPCS: 74177; 80053; 83690; 85025; 96361; 96365; 96372; 96375; 99283; J7030; Q9967; A4216; J2405; J3490

== ENCOUNTER 2023-05-08 12:39 | Observation (INO) | payer OTHER, SELFPAY ==
[2023-05-08] VITALS (10 sets, daily range): BP systolic 83–176; BP diastolic 47–109; PULSE 65–106; RESP 16–18; TEMP 35.7–36.9; O2SAT 90–95; BMI 32.3; BMI 31.1
--- NOTE | 2023-05-08 12:50 | EDS_ITS ---
HPI HPI - GI History of Present Illness Chief Complaint: Abd Pain Detail of Chief Complaint: Abdominal pain and nausea and vomiting Informant: patient Narrative Narrative: Patient presents with nausea and vomiting and abdominal pain that started 3 days ago. Patient was seen in the emergency department yesterday for same and was evaluated with lab work as well as a CT scan that was unremarkable. Patient was thought to have cyclic vomiting potentially. States he felt relatively okay yesterday because the meds were still working this morning he woke up and did not feel really good so he thought he needed to eat something as he has not had much p.o. intake since 3 days ago. Patient ate some toast and some applesauce and started vomiting and dry heaving. Patient scheduled to follow-up with GI in the beginning of May. Patient states he had similar symptoms like this over the last 10 to 11 years. He denies any illicit drug use. [facility] Medical History Back pain Chronic back pain GERD (gastroesophageal reflux disease) History of cocaine abuse History of stomach ulcers Home Medications pantoprazole 40 mg tablet,delayed release (Protonix) 40 mg PO DAILY #90 tabs 02/16/23 [Rx Last Taken 05/08/23] ondansetron 4 mg disintegrating tablet 4 mg PO Q8H PRN nausea and vomiting #30 tabs 05/02/23 [Rx Last Taken Unknown] sucralfate 1 gram tablet (Carafate) 1 g PO BID #20 tabs 05/07/23 [Rx Last Taken 05/08/23] Allergy/AdvReac Type Severity Reaction Status Date / Time Penicillins Allergy Unknown Verified 05/08/23 12:41 Family History Mother Cancer Father Emphysema lung Social History Smoking Status: Current every day smoker tobacco type: cigarettes alcohol intake: never substance use type: former substance user, marijuana and crack/cocaine what type of physical activity do you participate in: walking ROS ROS ED Review of Systems ROS Unobtainable: other Constitutional Constitutional ED: Reports lethargy; Denies chills, fever(s), sweats or weight loss Eyes Eyes: Denies blurry vision, change in vision or diplopia ENT ENT ED: Denies rhinorrhea or sore throat Cardiovascular Cardiovascular: Denies chest pain, orthopnea or racing heartbeat Respiratory/Chest Respiratory/Chest: Denies cough, dyspnea, dyspnea on exertion, orthopnea or sputum Gastrointestinal Gastrointestinal: Reports abdominal pain, nausea and vomiting; Denies diarrhea Genitourinary Genitourinary ED: Denies dysuria, hematuria or urinary frequency Musculoskeletal Musculoskeletal: Denies arthralgias, back pain, myalgias or neck pain Integumentary Denies abscess, Abrasions or rash Neurologic Neurologic: Denies headache(s) or weakness Psychiatric Psychiatric: Denies anxiety, depression or suicidal thoughts Endocrine Endocrinology: Denies polydipsia, polyphagia or polyuria Hematologic/Lymphatic Hematologic/Lymphatic: Denies easy bleeding, easy bruising or lymphadenopathy Allergic/Immunologic Allergic/Immunologic ED: Denies mouth swelling, tongue swelling or urticaria EXAM Physical Exam Const Vital Signs: 05/08/23 12:40 Temperature 96.2 F L Temperature Source Temporal Pulse Rate 94 Respiratory Rate 18 Blood Pressure 176/109 H Blood Pressure Mean 131 Pulse Ox 95 Oxygen Delivery Method Room Air Positive well nourished and well developed General Appearance ED: well developed and NAD HEENT Reports TM's clear and moist mucous membranes normocephalic and atraumatic; Negative for trauma or tenderness Tympanic Membrane ED: Yes TM's clear Eyes PERRL and EOMs intact bilaterally General Eye ED: Negative for pale conjunctiva or scleral icterus Neck no lymphadenopathy, supple and no JVD General: Negative for tenderness Chest Wall inspection of chest normal and palpation of chest normal Chest: Negative for tenderness Resp normal respiratory effort and clear to auscultation bilaterally Effort and Inspection: Negative for respiratory distress or pain with movement Auscultation: Negative for rhonchi, wheezes or diminished lung sounds Cardio regular rate, regular rhythm, S1 normal heart sound, S2 normal heart sound and no murmurs Peripheral Pulses: pulses 2+ throughout GI normal to inspection, nondistended, normoactive bowel sounds, soft to palpation, non-distended and no masses GI Narrative: Mild diffuse tenderness. There is no rebound, rigidity, or pineal signs. No mass palpated. Back/Spine no CVA tenderness and no thoracic nor lumbar tenderness Extremity normal to inspection General Extremety ED: Negative for edema General Extremity: Negative for edema Neuro oriented x3, CN's II-XII intact bilaterally, no sensory deficits noted and gait normal Sensorium / Orientation: awake, alert, oriented to person, oriented to place and oriented to time Motor Exam: strength 5/5 throughout and strength abnormal Psych mental status grossly normal Skin no rashes or lesions noted and no wounds MDM MDM MDM Narrative Medical decision making narrative: Patient presents with 4-day history now of vomiting and abdominal pain. History of cyclic vomiting syndrome. Seen in the emergency department yesterday and discharged and did well for about 12 hours and then started having symptoms of vomiting again. Patient has not been eating much. IV line established. CBC with differential count of 9.1 with hemoglobin 15.7 and platelet count of 260. Chemistries unremarkable. LFTs were normal. Lactate normal 1.4. Lipase normal at 17. Patient was medicated with Ativan and Reglan initially. He was given morphine for his pain. He continued to retch and was given Zofran. Patient continued to retch and then was given Thorazine and Benadryl. Case discussed with hospitalist evaluate patient for admission for intractable nausea and vomiting. Lab Data Attestation: I reviewed the patient's lab results. Labs: Laboratory Results - last 24 hr 05/08/23 05/08/23 12:54 13:07 WBC 9.1 RBC 4.72 Hgb 15.7 Hct 45.8 MCV 97.0 H MCH 33.3 H MCHC 34.3 RDW Std Deviation 54.1 H RDW Coeff of Tiffany 15.0 H Plt Count 260 MPV 11.1 Immature Gran % (Auto) 0.300 Neut % (Auto) 68.0 Lymph % (Auto) 22.5 [place] % (Auto) 7.7 Eos % (Auto) 0.7 Baso % (Auto) 0.8 Absolute Neuts (auto) 6.2 Absolute Lymphs (auto) 2.05 Nucleated RBC % 0 Sodium 134 L Potassium 3.7 Chloride 106 Carbon Dioxide 21.0 Anion Gap 7 BUN 16 Creatinine 1.17 Estim Creat Clear Calc 85.63 Est GFR (MDRD) Af Amer 81 Est GFR (MDRD) Non-Af 67 BUN/Creatinine Ratio 13.7 Glucose 145 H Lactic Acid 1.4 Calcium 9.2 Total Bilirubin 1.20 H AST 43 H ALT 38 Alkaline Phosphatase 61 Total Protein 7.9 Albumin 4.1 Globulin 3.8 Albumin/Globulin Ratio 1.1 Lipase 17 Discharge Plan Triage Chief Complaint: Abd Pain ED Provider: Juju Golden Dx/Rx/DC Orders Clinical Impression: Intractable cyclical vomiting with nausea, Abdominal pain Prescriptions: No Action pantoprazole [Protonix] 40 mg tablet,delayed release (DR/EC) 40 mg PO DAILY Qty: 90 1RF sucralfate [Carafate] 1 gram tablet 1 g PO BID Qty: 20 0RF ondansetron 4 mg tablet,disintegrating 4 mg PO Q8H PRN (Reason: nausea and vomiting) Qty: 30 0RF Primary Care Provider: Nurys Soares Referrals: Nurys Soares MD [Primary Care Provider] - Disposition Disposition: Acute Care [facility]
[2023-05-08] MEDS: 0.9% Normal Saline (1000mL) 1,000 ML 1000 ML IV (12:59)
[2023-05-08] MEDS: Metoclopramide 10 MG/2 ML Vial IV (12:59)
[2023-05-08] MEDS: Lorazepam 2 MG/ML WCH Syringe 1 MG IV (13:02)
[2023-05-08 13:05] LABS: Absolute Lymphocyte Count 2.05 X10^3/uL (0.83-4.51); Absolute Neutrophil Count 6.2 X10^3/uL (2.0-7.7); Basophil# 0.07 X10^3/uL; Basophil% 0.8 % (0-1); Eosinophil# 0.06 X10^3/uL; Eosinophils% 0.7 % (0-5); Hematocrit 45.8 % (40-54); Hemoglobin 15.7 g/dL (13.0-16.5); Lymphocyte # 2.05 X10^3/ul (0.83-4.51); Lymphocyte % 22.5 % (19-41); Mean Corp Hgb Conc 34.3 g/dL (32-36); Mean Corpuscular Hgb 33.3 pg (27.0-32.0); Mean Platelet Vol. 11.1 fl (6.2-12.0); Monocyte% 7.7 % (0-10); NRBC Flagged by Analyzer 0 % (0-5); Neutrophil # 6.22 X10^3/uL (2.7-7.7); Platelet Count 260 K/mm3 (150-450); RBC Distribution Width SD 54.1 fl (35.1-43.9); Red Blood Count 4.72 M/mm3 (4.6-6.2); White Blood Count 9.1 K/mm3 (4.4-11.0)
[2023-05-08] MEDS: Morphine 4 MG/ML Syringe IV (13:07)
[2023-05-08] MEDS: Pantoprazole Sodium 80 MG in 0.9% Normal Saline (50mL Bag) 15 ML 420 MG IV BOLUS (13:08)
[2023-05-08] MEDS: Ondansetron 4 MG/2 ML Vial IV ×2 (13:21→22:34)
[2023-05-08 13:22] LABS: ALB/GLOB Ratio 1.1 RATIO (0.9-2.4); AST(SGOT) 43 U/L (15-37); Alanine Aminotransfer ALT/SGPT 38 U/L (16-61); Albumin, Serum 4.1 g/dL (3.2-5.0); Alkaline Phosphatase 61 U/L (45-117); Anion Gap 7 (5-15); BUN 16 mg/dL (7-18); BUN/Creat Ratio 13.7 RATIO (10-20); Calcium,Total 9.2 mg/dL (8.5-10.1); Chloride 106 mmol/L (98-107); Creatinine, Serum 1.17 mg/dL (0.70-1.30); EST Glomerular Filtration Rate 67 mL/min (>60); Est Glom Filt Rate - Afr Amer 81 mL/min (>60); Estimated Creatinine Clearance 85.63 ml/min; Globulin 3.8 g/dL (2.2-4.2); Glucose 145 mg/dL (74-106); Lipase 17 U/L (13-75); Potassium 3.7 mmol/L (3.5-5.1); Protein, Total 7.9 g/dL (6.4-8.2); Sodium Level 134 mmol/L (136-145)
[2023-05-08 13:44] LABS: Lactic Acid 1.4 mmol/L (0.4-1.9)
[2023-05-08] MEDS: DiphenhydrAMINE 25 MG, ChlorproMAZINE IM 25 MG in 0.9% Normal Saline (100mL Bag) 100 ML 203 MG IV (14:09)
--- NOTE | 2023-05-08 14:57 | PCM.HP.STD ---
HPI - General General Date of Admission: 05/08/23 Date of Service: 05/08/23 Chief Complaint: Intractable nausea and vomiting HPI Narrative SHIN MONROY, is a 63 M who presented to [facility] ED on 05/08/2023 with intractable nausea and vomiting. Patient was seen in the ED yesterday for the same concern. CT abdomen pelvis showed likely fatty liver disease but otherwise no acute pathology. Labs were fairly benign. Patient reported similar symptoms at his outpatient visit about 3 weeks ago and notes that he has had intermittent symptoms like this over the past 10 or so years. He calls them attacks and states that over the last few days he has had a second bad attack. First one was about 10 years ago and he does not recall any details as to what was found. Denies ever having had an upper scope done. His PCP referred him to GI but he has not been able to see GI in the office yet. In the ED, he was noted to have significant nausea with vomiting. Staff noted that he was retching quite violently and had multiple episodes of this before I saw him. He was given doses of IV Zofran, IV Reglan, IV morphine, IV Ativan and finally IV Benadryl with IV Thorazine for symptom management. Was also given a liter of IV fluids. Because the symptoms were difficult to control and there was concern for possible upper GI pathology, hospitalist was contacted for admission. Patient seen at bedside in the ED. On my encounter, patient was sitting up comfortably in bed, conversing normally and in no acute distress. States his last episode of vomiting was about 30 minutes to an hour prior to my arrival. States he feels much more comfortable now that he did previously. Patient thinks that his symptoms may be due to worsening stress for him recently. He was somewhat long-winded but discussed that he has had recent financial troubles, including having to apply for new health insurance recently since he is now retired. Patient has history of alcohol abuse and cocaine abuse but has been clean from these things for about 20 years. He has started smoking marijuana over the past year or so since he retired. Smokes intermittently and has smoked less since his PCP visit about a month ago when he was told his vomiting could be due to cyclic vomiting syndrome from marijuana use. Last smoked about 5 days ago, states his symptoms were not any better or worse after smoking. Has history of tobacco abuse as well, has not used tobacco products for the last few months. States his last food was this morning when he tried to eat some toast and applesauce. He threw up about 15 minutes after eating these things, but states his vomitus was primarily just a small amount of stomach acid. Denies any bilious vomiting. Does have a history of chronic back pain but only uses Aleve very sparingly. He denies any abdominal pain or discomfort currently. Denies any chest pain, shortness of breath, fevers or chills. No other acute concerns at this time. [facility]LY [facility] Medical History (Updated 05/08/23 @ 16:34 by Consuelo Moreno) Back pain Chronic back pain COPD (chronic obstructive pulmonary disease) Former smoker GERD (gastroesophageal reflux disease) History of cocaine abuse History of stomach ulcers Home Medications pantoprazole 40 mg tablet,delayed release (Protonix) 40 mg PO DAILY #90 tabs 02/16/23 [Rx Last Taken 05/08/23] ondansetron 4 mg disintegrating tablet 4 mg PO Q8H PRN nausea and vomiting #30 tabs 05/02/23 [Rx Last Taken Unknown] sucralfate 1 gram tablet (Carafate) 1 g PO BID #20 tabs 05/07/23 [Rx Last Taken 05/08/23] cholecalciferol (vitamin D3) 25 mcg (1,000 unit) chewable tablet (Vitamin D3) 25 mcg PO DAILY supplement 05/08/23 [History Last Taken Unknown] Allergy/AdvReac Type Severity Reaction Status Date / Time Penicillins Allergy Unknown Verified 05/08/23 12:41 Family History Mother Cancer Father Emphysema lung Social History Smoking Status: Former smoker alcohol intake: never substance use type: former substance user, marijuana and crack/cocaine what type of physical activity do you participate in: walking ROS Constitutional Constitutional: Denies chills, fatigue, fever(s) or weakness Eyes Eyes: Denies change in vision ENT HEENT: Denies dysphagia Cardiovascular Cardiovascular: Denies chest pain, dyspnea on exertion, lightheadedness or palpitations Respiratory/Chest Respiratory/Chest: Denies cough, shortness of breath at rest or wheezing Gastrointestinal Gastrointestinal: Reports nausea and vomiting; Denies abdominal pain, constipation, diarrhea or dyspepsia Musculoskeletal Musculoskeletal: Reports back pain; Denies arthralgias or myalgias Neurologic Neurologic: Denies dizziness, focal weakness or headache(s) Psychiatric Psychiatric: Reports anxiety and depression Vital Signs Vital Signs Vital Signs: 05/08/23 12:40 Temperature 96.2 F L Temperature Source Temporal Pulse Rate 94 Respiratory Rate 18 Blood Pressure 176/109 H Blood Pressure Mean 131 Pulse Ox 95 Oxygen Delivery Method Room Air Weight Weight: 111.357 kg Body Mass Index (BMI) 32.3 Physical Exam Const alert, oriented x3 and no apparent distress Constitutional Narrative: Pleasant middle-age male, obese, sitting up comfortably in bed, conversing normally, no acute distress. General Appearance: cooperative and comfortable HEENT normocephalic, head/scalp atraumatic, hearing grossly normal bilaterally and nasal mucous membranes and turbinates normal Eyes PERRL, EOMs intact bilaterally and conjunctivae normal Neck full ROM Chest inspection of chest normal Resp normal respiratory effort, normal air movement, no use of accessory muscles and clear to auscultation bilaterally Cardio regular rate, regular rhythm, no murmurs and peripheral pulses 2+ throughout GI normal to inspection, nondistended, normoactive bowel sounds, soft to palpation, non-tender and non-distended Back/Spine normal ROM Extremity normal to inspection, full ROM and no pedal edema Skin no rashes or lesions noted Neuro moves all extremities and no focal motor deficits Speech: speech normal Psych mental status grossly normal Results Lab / Micro Data 05/08/23 12:54 05/08/23 12:54 Labs: Laboratory Results - last 24 hr 05/08/23 12:54: WBC 9.1, RBC 4.72, Hgb 15.7, Hct 45.8, MCV 97.0 H, MCH 33.3 H, MCHC 34.3, RDW Std Deviation 54.1 H, RDW Coeff of Tiffany 15.0 H, Plt Count 260, MPV 11.1, Immature Gran % (Auto) 0.300, Neut % (Auto) 68.0, Lymph % (Auto) 22.5, Dunn % (Auto) 7.7, Eos % (Auto) 0.7, Baso % (Auto) 0.8, Absolute Neuts (auto) 6.2, Absolute Lymphs (auto) 2.05, Nucleated RBC % 0, Sodium 134 L, Potassium 3.7, Chloride 106, Carbon Dioxide 21.0, Anion Gap 7, BUN 16, Creatinine 1.17, Estim Creat Clear Calc 85.63, Est GFR (MDRD) Af Amer 81, Est GFR (MDRD) Non-Af 67, BUN/Creatinine Ratio 13.7, Glucose 145 H, Calcium 9.2, Total Bilirubin 1.20 H, AST 43 H, ALT 38, Alkaline Phosphatase 61, Total Protein 7.9, Albumin 4.1, Globulin 3.8, Albumin/Globulin Ratio 1.1, Lipase 17 05/08/23 13:07: Lactic Acid 1.4 Assessment & Plan Assessment/Plan (1) Intractable cyclical vomiting with nausea: PLAN: Plan Patient is a 63-year-old male who presented to [facility] ED on 05/08/2023 with worsening nausea and vomiting. 1. Intractable nausea and vomiting ? Unclear etiology. Seems more likely due to stress versus cyclical vomiting syndrome, but cannot rule out upper GI pathology. Was prescribed p.o. PPI and sucralfate with meals recently but only took them a few times. ? Hemodynamically stable on room air in ED, labs fairly benign. CT abdomen pelvis on 05/06 showed likely fatty liver disease, otherwise was nonacute. ? Given multiple medications for nausea control in the ED with mild to moderate improvement, see HPI for further details. ? Admit under inpatient status to [facility]. GI consulted. Okay for regular diet as tolerated for now, n.p.o. at midnight. IV Zofran and IV Compazine as needed available for nausea. Start IV PPI twice daily and sucralfate with meals. 2. Depression/anxiety ? Patient reports history of intermittent episodes of depression with anxiety, has never been on medication for this. Reports worsening symptoms over the past few months given significant life stressors. ? Was apparently prescribed an antidepressant from his PCP within the last week but states he has not taken this yet, unclear on which antidepressant he was prescribed. ? Will start Celexa 10 mg daily now. Encouraged patient to follow-up closely with an outpatient PCP for up titration of this medication as needed. 3. Questionable lesions in liver and pancreas ? CT abdomen pelvis on 01/14/2023 showed a focal area of possible enhancement in the left hepatic lobe measuring 1.6 x 1.8 cm. ? Per PCP note from 04/11/23, CT abdomen pelvis on 04/07 at [facility] showed a 7 mm hypodense area in the pancreatic tail. ? Notably neither of these were called on his CT abdomen pelvis on 05/06. ? PCP plan was to obtain MRI of the abdomen for further evaluation but this had not been done yet. GI consulted as above, appreciate recommendations on need for further imaging. 4. Mildly elevated LFTs, suspected fatty liver disease ? CT abdomen pelvis on 05/06 showed likely fatty liver disease as noted above. T. bili 1.20, AST 43, ALT 38, alk phos 61 on admit. No need for further inpatient workup, can monitor in outpatient setting. 5. Marijuana use ? Reports smoking marijuana intermittently for the last year. Last use was 5 days prior to this admission. He does not think that his symptoms of nausea and vomiting seem related to his marijuana use. ? Urine drug screen ordered. Encouraged marijuana cessation. Chronic medical conditions: ? Obesity: BMI 31 on admit. Encouraged lifestyle modifications. Complicates hospital course, care and prognosis. ? Chronic back pain: Stable. Tylenol as needed. ? History of alcohol abuse and cocaine abuse: Reports abstinence for the last 20 years. DVT prophylaxis: Lovenox CODE STATUS: Full code, verified Expected disposition: Home, 2 to 3 days Total clinical time spent by myself addressing the patient's medical issues, reviewing all the data, and collaborating with patient's care team: 55 minutes. Charges/Coding Visit Charges Inpatient E&M: 19161 Init Hosp L2
--- NOTE | 2023-05-08 15:05 | NURSING ---
DR PLAZA FOR DR CHERY
--- NOTE | 2023-05-08 15:22 | NURSING ---
MED SURG BOLA INTRACTABLE NAUSEA AND VOMITING, ABD PAIN, FAILED OUTPATIENT THERAPY
--- NOTE | 2023-05-08 16:42 | EX.PCM.CON.G ---
HPI Consult Data Date of Consult: 05/08/23 HPI Narrative Reason for Consultation: nausea and vomiting HPI Narrative: SHIN MONROY, is a 63 M who presented to ED recurrent vomiting. He has been having nausea for a few months states for the past week has been having intermittent vomiting. He was seen in the ED here 5 days ago. He had lab work and a CAT scan. He states he was sent home with 4 medications. Initially was feeling better however went home vomiting started again. He states he vomited probably 100 times. He has been having very small bowel movements twice a day nonbloody. States when he vomits or may be streaks of blood. However nothing heavy. Denies alcohol history. Denies abdominal pain. He was able to eat little bit yesterday however since then unable keep things down. No abdominal surgeries. Patient ate some toast and some applesauce and started vomiting and dry heaving. Patient scheduled to follow-up with GI in the beginning of May. Patient states he had similar symptoms like this over the last 10 to 11 years. He denies any illicit drug use although his history does show that he was positive for cocaine in the past. COUNT INCLUDES THE [facility] Review of records sent home Carafate pantoprazole as needed Phenergan and diclofenac. COUNT INCLUDES THE [facility] Medical History (Updated 05/08/23 @ 16:34 by Consuelo Moreno) Back pain Chronic back pain COPD (chronic obstructive pulmonary disease) Former smoker GERD (gastroesophageal reflux disease) History of cocaine abuse History of stomach ulcers Home Medications pantoprazole 40 mg tablet,delayed release (Protonix) 40 mg PO DAILY #90 tabs 02/16/23 [Rx Last Taken 05/08/23] ondansetron 4 mg disintegrating tablet 4 mg PO Q8H PRN nausea and vomiting #30 tabs 05/02/23 [Rx Last Taken Unknown] sucralfate 1 gram tablet (Carafate) 1 g PO BID #20 tabs 05/07/23 [Rx Last Taken 05/08/23] cholecalciferol (vitamin D3) 25 mcg (1,000 unit) chewable tablet (Vitamin D3) 25 mcg PO DAILY supplement 05/08/23 [History Last Taken Unknown] Allergy/AdvReac Type Severity Reaction Status Date / Time Penicillins Allergy Unknown Verified 05/08/23 12:41 Family History Mother Cancer Father Emphysema lung Social History Smoking Status: Former smoker alcohol intake: never substance use type: former substance user, marijuana and crack/cocaine what type of physical activity do you participate in: walking ROS Review of Systems ROS Unobtainable: other Constitutional Constitutional: Denies fatigue, fever(s), poor appetite, weight gain or weight loss ENT HEENT: Denies mouth lesions Cardiovascular Cardiovascular: Denies abdominal bloating, abdominal edema or abdominal pain Respiratory/Chest Respiratory/Chest: Denies change in mental status, change in phlegm color, chest congestion or chest tightness Gastrointestinal Gastrointestinal: Denies belching, bloating, change in bowel habits, change in stool character, chewing difficulty, coffee ground emesis, constipation, cramping, diarrhea, dyspepsia, dysphagia, early satiety, excessive flatus, fecal incontinence, heartburn, hematemesis, hematochezia, hemorrhoids, loose stools, melena, nausea, odynophagia, rectal bleeding, tenesmus, vomiting or weight changes Genitourinary Genitourinary: Denies abdominal discomfort, burning urination or itching Musculoskeletal Musculoskeletal: Reports as per HPI; Denies muscle weakness or myalgias Integumentary Integumentary: Denies jaundice Neurologic Neurologic: Denies lack of coordination or weakness Psychiatric Psychiatric: Denies confusion, depression, memory loss, mood swings, paranoia or suicidal ideation Endocrine Endocrinology: Denies systems reviewed and no addt'l complaints, except as documented Hematologic/Lymphatic Hematologic/Lymphatic: Denies anemia, easy bleeding, easy bruising or lymphadenopathy Allergic/Immunologic Allergic/Immunologic: Denies systems reviewed and no addt'l complaints, except as documented Physical Exam Const alert, oriented x3, no apparent distress, healthy appearing and well nourished General Appearance: cooperative, comfortable, well kempt and well developed Orientation / Consciousness: awake and oriented to person HEENT Head and Scalp: normocephalic and atraumatic Face and Sinus: normal facial exam Mouth: oral and palatal mucosa normal Eyes General Eye: normal appearance of both eyes Neck full ROM Lymph Lymphatic: no lymphadenopathy noted Chest inspection of chest normal Resp normal respiratory effort and no use of accessory muscles Cardio regular rate and regular rhythm GI normal to inspection, nondistended, normoactive bowel sounds, soft to palpation, non-tender, non-distended and no masses Auscultation: normoactive bowel sounds Palpation: soft Percussion: normal to percussion Rectal Exam: visual inspection normal and normal sphincter tone no CVA tenderness Back/Spine no CVA tenderness and normal ROM Extremity normal to inspection Peripheral Pulses: Yes pulses 2+ throughout Skin no rashes or lesions noted General Skin Exam: no breakdown, elasticity normal and turgor normal Neuro oriented x3 Motor Exam: strength 5/5 throughout Psych mental status grossly normal Appearance: grossly normal Attitude: calm Activity / Motor Behavior: appropriate eye contact Speech: normal speech Thought Process: normal thought process Thought Content: normal thought content Attention / Concentration: attention grossly intact Memory / Cognition: memory grossly intact Insight: insight good Judgement: judgement good Lab / Micro Data 05/08/23 12:54 05/08/23 12:54 Labs: Laboratory Results - last 24 hr 05/08/23 12:54: WBC 9.1, RBC 4.72, Hgb 15.7, Hct 45.8, MCV 97.0 H, MCH 33.3 H, MCHC 34.3, RDW Std Deviation 54.1 H, RDW Coeff of Tiffany 15.0 H, Plt Count 260, MPV 11.1, Immature Gran % (Auto) 0.300, Neut % (Auto) 68.0, Lymph % (Auto) 22.5, Gage % (Auto) 7.7, Eos % (Auto) 0.7, Baso % (Auto) 0.8, Absolute Neuts (auto) 6.2, Absolute Lymphs (auto) 2.05, Nucleated RBC % 0, Sodium 134 L, Potassium 3.7, Chloride 106, Carbon Dioxide 21.0, Anion Gap 7, BUN 16, Creatinine 1.17, Estim Creat Clear Calc 85.63, Est GFR (MDRD) Af Amer 81, Est GFR (MDRD) Non-Af 67, BUN/Creatinine Ratio 13.7, Glucose 145 H, Calcium 9.2, Total Bilirubin 1.20 H, AST 43 H, ALT 38, Alkaline Phosphatase 61, Total Protein 7.9, Albumin 4.1, Globulin 3.8, Albumin/Globulin Ratio 1.1, Lipase 17 05/08/23 13:07: Lactic Acid 1.4 05/08/23 15:40: Ethyl Alcohol Cancelled
--- NOTE | 2023-05-08 16:49 | EX.PCM.CON.G ---
HPI Consult Data Date of Consult: 05/08/23 HPI Narrative HPI Narrative: SHIN MONROY, is a 63 M who presents [facility] Medical History (Updated 05/08/23 @ 16:34 by Consuelo Moreno) Back pain Chronic back pain COPD (chronic obstructive pulmonary disease) Former smoker GERD (gastroesophageal reflux disease) History of cocaine abuse History of stomach ulcers Home Medications pantoprazole 40 mg tablet,delayed release (Protonix) 40 mg PO DAILY #90 tabs 02/16/23 [Rx Last Taken 05/08/23] ondansetron 4 mg disintegrating tablet 4 mg PO Q8H PRN nausea and vomiting #30 tabs 05/02/23 [Rx Last Taken Unknown] sucralfate 1 gram tablet (Carafate) 1 g PO BID #20 tabs 05/07/23 [Rx Last Taken 05/08/23] cholecalciferol (vitamin D3) 25 mcg (1,000 unit) chewable tablet (Vitamin D3) 25 mcg PO DAILY supplement 05/08/23 [History Last Taken Unknown] Allergy/AdvReac Type Severity Reaction Status Date / Time Penicillins Allergy Unknown Verified 05/08/23 12:41 Family History Mother Cancer Father Emphysema lung Social History Smoking Status: Former smoker alcohol intake: never substance use type: former substance user, marijuana and crack/cocaine what type of physical activity do you participate in: walking Lab / Micro Data 05/08/23 12:54 05/08/23 12:54 Labs: Laboratory Results - last 24 hr 05/08/23 12:54: WBC 9.1, RBC 4.72, Hgb 15.7, Hct 45.8, MCV 97.0 H, MCH 33.3 H, MCHC 34.3, RDW Std Deviation 54.1 H, RDW Coeff of Tiffany 15.0 H, Plt Count 260, MPV 11.1, Immature Gran % (Auto) 0.300, Neut % (Auto) 68.0, Lymph % (Auto) 22.5, Bill[place] % (Auto) 7.7, Eos % (Auto) 0.7, Baso % (Auto) 0.8, Absolute Neuts (auto) 6.2, Absolute Lymphs (auto) 2.05, Nucleated RBC % 0, Sodium 134 L, Potassium 3.7, Chloride 106, Carbon Dioxide 21.0, Anion Gap 7, BUN 16, Creatinine 1.17, Estim Creat Clear Calc 85.63, Est GFR (MDRD) Af Amer 81, Est GFR (MDRD) Non-Af 67, BUN/Creatinine Ratio 13.7, Glucose 145 H, Calcium 9.2, Total Bilirubin 1.20 H, AST 43 H, ALT 38, Alkaline Phosphatase 61, Total Protein 7.9, Albumin 4.1, Globulin 3.8, Albumin/Globulin Ratio 1.1, Lipase 17 05/08/23 13:07: Lactic Acid 1.4 05/08/23 15:40: Ethyl Alcohol Cancelled Assessment & Plan Assessment/Plan (1) Intractable cyclical vomiting with nausea: (2) Abdominal pain: PLAN: Plan 63-year-old gentleman with past medical history of drug abuse who comes in with intractable nausea vomiting. Differential diagnosis does include marijuana hyperemesis, superior mesenteric artery syndrome, gastroparesis, celiac artery syndrome, Celiac sprue, adrenal insufficiency, hypothyroidism, hypoglycemia. I will send biochemical workup for small vessel vasculitis, celiac disease, hyper hypothyroidism, adrenal insufficiency, celiac disease, ESR, CRP. We will get a gastric emptying study to evaluate his gastric emptying time. I think he would benefit from an upper endoscopy to evaluate his upper GI tract for gastric outlet of syndrome. He may also benefit from a HIDA scan to see if there are any signs of microlithiasis or sphincter of Oddi syndrome. Charges/Coding Visit Charges Inpatient E&M: 87999 Init Hosp L3
[2023-05-08 16:55] LABS: Alcohol, Blood (Medical)-Serum < 3.0 mg/dL
[2023-05-08] MEDS: Sucralfate 1 GM Tablet PO ×2 (17:23→21:40)
[2023-05-08 18:05] LABS: Erythrocyte Sedimentation Rate 15 mm/hr (0-20)
[2023-05-08 18:07] LABS: Amylase 19 U/L (25-115); CRP < 2.90 mg/L (0.0-3.0); Free T3 1.2 pg/mL (2.18-3.98); Lipase 12 U/L (13-75); T4 Free Direct 0.32 ng/dL (0.76-1.46)
[2023-05-08] MEDS: Pantoprazole Sodium 40 MG in 0.9% Normal Saline (100mL MB+) 100 ML 330 MG IV (21:39)
--- NOTE | 2023-05-08 22:30 | EKG12_ITS ---
Test Reason : PRE-OP Blood Pressure : / mmHG Vent. Rate : 074 BPM Atrial Rate : 074 BPM P-R Int : 180 ms QRS Dur : 152 ms QT Int : 490 ms P-R-T Axes : 052 057 -22 degrees QTc Int : 543 ms Normal sinus rhythm Right bundle branch block T wave abnormality, consider inferior ischemia Abnormal ECG When compared with ECG of 20-AUG-2018 13:36, Right bundle branch block is now Present Confirmed by Nathan Rowan ([id number]), online content editor LANI ACOSTA ([id number]) on 05/11/2023 11:13:18 AM Referred By: Confirmed By:Nathan Rowan
[2023-05-09] MEDS: proCHLORPERazine 10 MG/2 ML Vial 5 MG IV ×3 (02:32→17:01)
[2023-05-09 02:34] VITALS: BP 107/70; PULSE 69; RESP 16; TEMP 36.4; O2SAT 94
[2023-05-09 03:39] LABS: Bacteria 0 SEEN /hpf (None Seen); Mucous, Urine 0 SEEN /hpf (<or=2+); Red Blood Cells-Urine 0 SEEN /hpf (0-5); Squamous Epithelial Cells - UA 0 SEEN /hpf (0-5); White Blood Cells 0 SEEN /hpf (0-5)
[2023-05-09 03:42] LABS: Color, Urine Yellow (Yellow); Glucose, Dipstick Normal (Normal); Leukocyte Esterase-Dipstick Negative /ul (Negative); Nitrite-Dipstick Negative (Negative); Occult Blood-Urine Negative /ul (Negative); Protein-Dipstick 15 mg/dl (Negative); Urine Bilirubin Dipstick Negative (Negative); Urine Clarity Clear (Clear); Urine Urobilinogen Normal (Normal)
[2023-05-09 03:49] LABS: Ketone-Dipstick 150 mg/dl (Negative)
[2023-05-09 04:07] LABS: Amphetamine Urine VISTA NEGATIVE (<1000 ng/mL); Barbiturate Urine VISTA NEGATIVE (< 200 ng/mL); Benzodiazepine Urine VISTA NEGATIVE (< 200 ng/mL); Cocaine Urine VISTA NEGATIVE (< 300 ng/mL); Ecstacy Urine VISTA NEGATIVE (< 500 ng/mL); Methadone Urine VISTA NEGATIVE (< 300 ng/mL); PCP Urine VISTA NEGATIVE (< 25 ng/mL); THC Urine VISTA POSITIVE (< 50 ng/mL); Vista UDS pH Range 4
[2023-05-09] MEDS: 0.9% Normal Saline (1000mL) 1,000 ML 75 ML IV ×2 (04:30→20:06)
[2023-05-09] MEDS: Ondansetron 4 MG/2 ML Vial IV ×2 (06:00→20:06)
[2023-05-09] MEDS: Sucralfate 1 GM Tablet PO ×2 (06:01→20:09)
[2023-05-09 06:04] LABS: Hemoglobin 13.9 g/dL (13.0-16.5); Mean Corp Hgb Conc 33.1 g/dL (32-36); Mean Corpuscular Hgb 32.6 pg (27.0-32.0); Mean Corpuscular Volume 98.4 fL (80-94); Mean Platelet Vol. 10.6 fl (6.2-12.0); Platelet Count 210 K/mm3 (150-450); RBC Distribution Width CV 15.4 % (11.6-14.6); RBC Distribution Width SD 55.6 fl (35.1-43.9); Red Blood Count 4.27 M/mm3 (4.6-6.2); White Blood Count 11.6 K/mm3 (4.4-11.0)
[2023-05-09 06:25] LABS: Anion Gap 6 (5-15); BUN 16 mg/dL (7-18); BUN/Creat Ratio 14.2 RATIO (10-20); Calcium,Total 8.9 mg/dL (8.5-10.1); Chloride 105 mmol/L (98-107); Creatinine, Serum 1.13 mg/dL (0.70-1.30); EST Glomerular Filtration Rate 70 mL/min (>60); Est Glom Filt Rate - Afr Amer 85 mL/min (>60); Estimated Creatinine Clearance 87.03 ml/min; Glucose 132 mg/dL (74-106); Sodium Level 139 mmol/L (136-145)
[2023-05-09 08:09] VITALS: BP 116/81; PULSE 68; RESP 18; TEMP 36.9; O2SAT 92
[2023-05-09] MEDS: Potassium Chloride 10mEq/100mL 10 MEQ/100 ML IV.SOLN. 100 MEQ IV BOLUS (08:09)
[2023-05-09 08:15] VITALS: O2SAT 95
[2023-05-09] MEDS: 0.9% Saline Lock 10 ML Syringe IV (08:24)
--- NOTE | 2023-05-09 09:30 | NM_ITS ---
CLINICAL: 63-year-old male with history of chronic nausea. SEMI-SOLID PHASE 99m Tc SULFUR COLLOID GASTRIC EMPTYING STUDY COMPARISON: CT of the abdomen-pelvis report 05/07/2023 FINDINGS: The patient was administered 1.2 mCi of 99m Tc sulfur colloid mixed with oatmeal and consumed per os. Image acquisitions in the anterior -posterior projections were obtained for 60 minutes. There is prompt visualization of the stomach. There is no gastroesophageal reflux identified. The T ? raw data emptying was calculated to be 22.53 minutes, (Normal: 12-56 minutes). NM/Gastric Emptying Study IMPRESSION: 1. NORMAL 99m Tc sulfur colloid semi-solid phase (oatmeal) gastric emptying imaging examination. A. There is normal and preserved semi-solid phase gastric emptying compared to normal controls. (Eloisa et al, J Nucl Med Tech 38: 186, 2010). Electronically Signed: Bert Hernandez DO at 12:08 EDT ,
[2023-05-09] MEDS: Potassium Chloride 10mEq/100mL 10 MEQ/100 ML IV.SOLN. 90 MEQ IV BOLUS (09:35)
--- NOTE | 2023-05-09 10:07 | CASEMGMT ---
RN CM to pt room for assessment, pt is off of the floor. CM to follow for assessment once returns.
[2023-05-09] MEDS: Pantoprazole Sodium 40 MG in 0.9% Normal Saline (100mL MB+) 100 ML 330 MG IV ×2 (11:46→20:12)
--- NOTE | 2023-05-09 11:53 | CASEMGMT ---
CESILIA PAREDES Assessment Face to Face with patient for initial transition planning/care coordination assessment. CESILIA PAREDES introduced self and role at [facility], pt voices understanding. Pt is A&Ox4 and is resting comfortably in bed and is calm. Care providers, pharmacy, and demographics verified. Admitting dx: Intractable N/V LACE Strata: 2 PCP: Fany Specialists: Friend during stay here Preferred Pharmacy: [facility] Insurance: [id number] Prescription Benefit: Yes LNOK: Ekta Gutierrez (W) Living Arrangements: Pt lives with his in a single story home with a BM without HR with 2 steps to enter. Pt denies issues at home. ADLs/IADLs: Ind Transportation: Self, DME: Denies all DME uses or needs. HHC/SNF: Denies history or needs. Pt?s goal: Home no needs Plan: Pt is scheduled for an EGD today at 1600. At time of assessment, pt states that he wishes to DC home once medically ready with no additional needs. Pt states that he feels safe and comfortable doing so. Pt denies the need for HHC or OP therapy. CM to follow for safe DC home. Florian Landry RN, CM
--- NOTE | 2023-05-09 15:06 | PN_ITS ---
Subjective Subjective Patient seen and examined. He had no active complaints. His nausea and vomiting has improved and has not recurred since admission. Review of systems otherwise negative. Objective Data Objective Data Vital Signs: Vital Signs Temp Pulse Resp BP Pulse Ox O2 Del Method O2 Flow Rate 98.4 F 68 18 116/81 H 95 Room Air 2 05/09/23 08:09 05/09/23 08:09 05/09/23 08:09 05/09/23 08:09 05/09/23 08:15 05/09/23 08:15 05/08/23 22:52 Oxygen Flow Rate (L/min) 2 Oxygen Delivery Method Room Air Weight: 236 lb 1.841 oz Body Mass Index (BMI) 31.1 Intake & Output: Intake and Output for Last 24 Hours 05/07/23 05/08/23 05/09/23 23:59 23:59 23:59 Intake Total 1546.5 / 1746.5 922.5 / 922.5 Balance 1546.5 / 1746.5 922.5 / 922.5 Lab / Micro Data 05/09/23 05:35 05/09/23 05:35 Labs: Laboratory Results - last 24 hr 05/08/23 12:54: ESR 15, C-React Prot Ext Range < 2.90, Amylase 19 L, Lipase 12 L , TSH 59.80 H, Free T4 0.32 L, Free T3 pg/dL 1.2 L 05/08/23 15:40: Ethyl Alcohol Cancelled 05/08/23 16:30: Ethyl Alcohol < 3.0 05/09/23 03:30: Urine Color Yellow, Urine Clarity Clear, Urine pH 6.0, Ur Specific [place] 1.020, Urine Protein 15 H, Urine Glucose (UA) Normal, Urine Ketones 150 A*, Urine Occult Blood Negative, Urine Nitrite Negative, Urine Bilirubin Negative, Urine Urobilinogen Normal, Ur Leukocyte Esterase Negative, Urine RBC 0 SEEN, Urine WBC 0 SEEN, Ur Squamous Epith Cells 0 SEEN, Urine Bacteria 0 SEEN, Urine Mucus 0 SEEN, Urine Opiates Screen NEGATIVE, Urine Methadone Screen NEGATIVE, Ur Barbiturates Screen NEGATIVE, Ur Phencyclidine Scrn NEGATIVE, Ur Amphetamines Screen NEGATIVE, MDMA (Ecstasy) Screen NEGATIVE, U Benzodiazepines Scrn NEGATIVE, Urine Cocaine Screen NEGATIVE, U Cannabinoids Screen POSITIVE H, Ur Drug Screen Comment 05/09/23 05:35: WBC 11.6 H, RBC 4.27 L, Hgb 13.9, Hct 42.0, MCV 98.4 H, MCH 32.6 H, MCHC 33.1, RDW Std Deviation 55.6 H, RDW Coeff of Tiffany 15.4 H, Plt Count 210, MPV 10.6, Sodium 139, Potassium 3.0 L, Chloride 105, Carbon Dioxide 28.0, Anion Gap 6, BUN 16, Creatinine 1.13, Estim Creat Clear Calc 87.03, Est GFR (MDRD) Af Amer 85, Est GFR (MDRD) Non-Af 70, BUN/Creatinine Ratio 14.2, Glucose 132 H, Calcium 8.9 Radiography Diagnostic Testing: Radiology Impression Gastric Emptying Nuclear Medicine 05/09/23 09:30 IMPRESSION: 1. NORMAL 99m Tc sulfur colloid semi-solid phase (oatmeal) gastric emptying imaging examination. A. There is normal and preserved semi-solid phase gastric emptying compared to normal controls. (Eloisa et al, J Nucl Med Tech 38: 186, 2010). Electronically Signed: Bert Hernandez DO at 12:08 EDT , Physical Exam Const alert, oriented x3, no apparent distress and well nourished General Appearance: cooperative and well developed HEENT normocephalic, head/scalp atraumatic, moist oral mucous membranes and oropharynx normal Eyes PERRL and EOMs intact bilaterally Neck no lymphadenopathy, supple and no JVD Lymph Lymphatic: no lymphadenopathy noted and no lymphedema noted Resp normal respiratory effort, normal air movement and clear to auscultation bilaterally Cardio regular rate, regular rhythm, S1 normal heart sound, S2 normal heart sound and no murmurs GI normal to inspection, nondistended, normoactive bowel sounds, soft to palpation, non-tender and non-distended Extremity normal capillary refill, no clubbing, cyanosis or edema and no calf tenderness General Extremity: no tenderness to palpation of joints or extremities Skin General Skin Exam: no breakdown Neuro CN's II-XII intact bilaterally, no focal motor deficits, no sensory deficits noted and deep tendon reflexes 2+ bilaterally Motor Exam: strength 5/5 throughout and general weakness Psych thought process normal, cooperative and affect normal Appearance: appropriate Assessment & Plan Assessment/Plan (1) Intractable cyclical vomiting with nausea: (2) Abdominal pain: PLAN: Plan #Intractable nausea and vomiting * vomiting has improved, as well as nausea * He states he does use marijuana but quit about 2 weeks ago. * He is feeling better. GI on board. Awaiting EGD. * IV Zofran as needed * #GERD: On pantoprazole and sucralfate. Due to prophylaxis: SCDs #? Liver and pancreatic lesions * CT of the abdomen and pelvis done in December 2022 showed a focal area of possible enhancement in the left hepatic lobe injury 1.[address] abdomen and pelvis on 04/07/2023 which showed a 7 mm hypodense area in the pancreatic tail. CAT scan done at of the abdomen and pelvis on 05/07/2023 did not show any of these lesions. * GI consulted. Await recs. * #Elevated liver enzymes: Total bilirubin was 1.2 and AST, ALT and ALP were only minimally elevated. Follow-up with GI on outpatient basis. #History of cannabinoid use: * Patient used to smoke marijuana very heavily but says he quit just about 2 weeks ago though by the admit note his last use was 5 days prior to admission. * Patient counseled that his symptoms might be due to marijuana use but patient denies this as he says when he was much younger he was a pothead and used marijuana all the time but did not have the symptoms. * counseled to quit. DVT prophylaxis: Lovenox Charges/Coding Visit Charges Inpatient E&M: 83503 Subs Hosp L2
[2023-05-09 15:41] VITALS: BP 164/99; PULSE 70; RESP 18; TEMP 36.8; O2SAT 98
--- NOTE | 2023-05-09 18:04 | PN.GI_ITS ---
Subjective Subjective Patient underwent gastric emptying study today. It was a normal time at 22 minutes today. His nausea is a little bit better today. He was supposed to undergo an upper endoscopy today. But because he had food anesthesia held the procedure until tomorrow. Objective Data Objective Data Vital Signs: Vital Signs Temp Pulse Resp BP Pulse Ox O2 Del Method O2 Flow Rate 98.2 F 70 18 164/99 H 98 Room Air 2 05/09/23 15:41 05/09/23 15:41 05/09/23 15:41 05/09/23 15:41 05/09/23 15:41 05/09/23 15:41 05/08/23 22:52 Oxygen Flow Rate (L/min) 2 Oxygen Delivery Method Room Air Weight: 236 lb 1.841 oz Body Mass Index (BMI) 31.1 Intake & Output: Intake and Output for Last 24 Hours 05/07/23 05/08/23 05/09/23 23:59 23:59 23:59 Intake Total 1546.5 / 1746.5 922.5 / 922.5 Balance 1546.5 / 1746.5 922.5 / 922.5 Lab / Micro Data 05/09/23 05:35 05/09/23 05:35 Labs: Laboratory Results - last 24 hr 05/08/23 12:54: ESR 15, C-React Prot Ext Range < 2.90, Amylase 19 L, Lipase 12 L , TSH 59.80 H, Free T4 0.32 L, Free T3 pg/dL 1.2 L 05/09/23 03:30: Urine Color Yellow, Urine Clarity Clear, Urine pH 6.0, Ur Specific [place] 1.020, Urine Protein 15 H, Urine Glucose (UA) Normal, Urine Ketones 150 A*, Urine Occult Blood Negative, Urine Nitrite Negative, Urine Bilirubin Negative, Urine Urobilinogen Normal, Ur Leukocyte Esterase Negative, Urine RBC 0 SEEN, Urine WBC 0 SEEN, Ur Squamous Epith Cells 0 SEEN, Urine Bacteria 0 SEEN, Urine Mucus 0 SEEN, Urine Opiates Screen NEGATIVE, Urine Methadone Screen NEGATIVE, Ur Barbiturates Screen NEGATIVE, Ur Phencyclidine Scrn NEGATIVE, Ur Amphetamines Screen NEGATIVE, MDMA (Ecstasy) Screen NEGATIVE, U Benzodiazepines Scrn NEGATIVE, Urine Cocaine Screen NEGATIVE, U Cannabinoids Screen POSITIVE H, Ur Drug Screen Comment 05/09/23 05:35: WBC 11.6 H, RBC 4.27 L, Hgb 13.9, Hct 42.0, MCV 98.4 H, MCH 32.6 H, MCHC 33.1, RDW Std Deviation 55.6 H, RDW Coeff of Tiffany 15.4 H, Plt Count 210, MPV 10.6, Sodium 139, Potassium 3.0 L, Chloride 105, Carbon Dioxide 28.0, Anion Gap 6, BUN 16, Creatinine 1.13, Estim Creat Clear Calc 87.03, Est GFR (MDRD) Af Amer 85, Est GFR (MDRD) Non-Af 70, BUN/Creatinine Ratio 14.2, Glucose 132 H, Calcium 8.9 Radiography Diagnostic Testing: Radiology Impression Gastric Emptying Nuclear Medicine 05/09/23 09:30 IMPRESSION: 1. NORMAL 99m Tc sulfur colloid semi-solid phase (oatmeal) gastric emptying imaging examination. A. There is normal and preserved semi-solid phase gastric emptying compared to normal controls. (Eloisa et al, J Nucl Med Tech 38: 186, 2010). Electronically Signed: Bert Hernandez DO at 12:08 EDT , Physical Exam Const alert, oriented x3, no apparent distress and well nourished General Appearance: cooperative and well developed HEENT normocephalic, head/scalp atraumatic, moist oral mucous membranes and oropharynx normal Eyes PERRL and EOMs intact bilaterally Neck no lymphadenopathy, supple and no JVD Lymph Lymphatic: no lymphadenopathy noted and no lymphedema noted Resp normal respiratory effort, normal air movement and clear to auscultation bilaterally Cardio regular rate, regular rhythm, S1 normal heart sound, S2 normal heart sound and no murmurs GI normal to inspection, nondistended, normoactive bowel sounds, soft to palpation, non-tender and non-distended Extremity normal capillary refill, no clubbing, cyanosis or edema and no calf tenderness General Extremity: no tenderness to palpation of joints or extremities Skin General Skin Exam: no breakdown Neuro CN's II-XII intact bilaterally, no focal motor deficits, no sensory deficits noted and deep tendon reflexes 2+ bilaterally Motor Exam: strength 5/5 throughout and general weakness Psych thought process normal, cooperative and affect normal Appearance: appropriate Assessment & Plan Assessment/Plan (1) Intractable cyclical vomiting with nausea: (2) Abdominal pain: PLAN: Plan He did not have delayed gastric emptying as a cause of his intractable cyclic vomiting and nausea along with abdominal pain. Differential diagnosis does include peptic ulcer disease, stricture at the level of the pylorus, celiac disease, irritation in the stomach secondary to H. pylori associated peptic ulcer disease or gastritis and marijuana hyperemesis syndrome. The chronic longstanding use of cannabis has been implicated in causing refractory nausea and vomiting named cannabinoid hyperemesis syndrome. Treatments such as?topical capsaicin, haloperidol, droperidol, benzodiazepines, propranolol, and aprepitant?have shown symptom relief. 1 of these or all of these medicines may be involved in the treatment of marijuana hyperemesis syndrome pending his upper endoscopy tomorrow. N.p.o. past midnight. Charges/Coding Visit Charges Inpatient E&M: 06763 Subs Hosp L3
[2023-05-09 21:00] VITALS: BP 139/98; PULSE 61; RESP 18; TEMP 36.6; O2SAT 95
[2023-05-10] VITALS (9 sets, daily range): BP systolic 83–138; BP diastolic 47–99; PULSE 48–68; RESP 14–18; TEMP 36.2–36.8; O2SAT 92–97; BMI 31.1
[2023-05-10] MEDS: Acetaminophen 325 MG Tablet 650 MG PO (04:20)
[2023-05-10 06:19] LABS: Absolute Lymphocyte Count 1.94 X10^3/uL (0.83-4.51); Absolute Neutrophil Count 4.3 X10^3/uL (2.0-7.7); Basophil# 0.06 X10^3/uL; Basophil% 0.8 % (0-1); Eosinophil# 0.18 X10^3/uL; Eosinophils% 2.5 % (0-5); Hematocrit 41.1 % (40-54); Hemoglobin 13.7 g/dL (13.0-16.5); Lymphocyte # 1.94 X10^3/ul (0.83-4.51); Lymphocyte % 27.2 % (19-41); Mean Corp Hgb Conc 33.3 g/dL (32-36); Mean Corpuscular Hgb 32.4 pg (27.0-32.0); Mean Corpuscular Volume 97.2 fL (80-94); Mean Platelet Vol. 10.6 fl (6.2-12.0); Monocyte% 8.4 % (0-10); NRBC Flagged by Analyzer 0 % (0-5); Neutrophil % 60.5 % (47-70); Platelet Count 205 K/mm3 (150-450); RBC Distribution Width CV 14.9 % (11.6-14.6); RBC Distribution Width SD 53.3 fl (35.1-43.9); Red Blood Count 4.23 M/mm3 (4.6-6.2); White Blood Count 7.1 K/mm3 (4.4-11.0)
[2023-05-10 06:42] LABS: Anion Gap 5 (5-15); BUN 9 mg/dL (7-18); BUN/Creat Ratio 10.3 RATIO (10-20); Calcium,Total 8.4 mg/dL (8.5-10.1); Chloride 105 mmol/L (98-107); Creatinine, Serum 0.88 mg/dL (0.70-1.30); EST Glomerular Filtration Rate 94 mL/min (>60); Est Glom Filt Rate - Afr Amer 113 mL/min (>60); Estimated Creatinine Clearance 111.76 ml/min; Glucose 122 mg/dL (74-106); Sodium Level 137 mmol/L (136-145)
[2023-05-10] MEDS: Ondansetron 4 MG/2 ML Vial IV ×2 (06:51→22:45)
[2023-05-10 07:08] LABS: HEPATITIS B SURFACE AG Negative (Negative); Hep C Antibodies Non Reactive (Non Reactive); Hepatitis A IgM Antibody Negative (Negative); Hepatitis B Core AB IgM Negative (Negative)
[2023-05-10] MEDS: proCHLORPERazine 10 MG/2 ML Vial 5 MG IV (07:51)
[2023-05-10] MEDS: 0.9% Normal Saline (1000mL) 1,000 ML 75 ML IV (07:54)
[2023-05-10] MEDS: Lactated Ringers 1,000 ML 15 ML IV (09:02)
--- NOTE | 2023-05-10 10:00 | EGD_PTH ---
PATIENT: SHIN MONROY LOC: [facility]3 U#:[id number] AGE/SX: 63/M ROOM: [facility]305 RE05/08/[address]: Dr. Bre Chester MD : 1960 BED: 1 DIS: 05/11/2023 SPEC #: [id number] RECD: 05/10/23 12:08 STATUS: CHRISTOPHER HATFIELD #: [id number] ELAINE: 05/10/23 10:[address]: Bre Chester DEPT: SURGICAL PATHOLOGY RECD BY: Ree Mcmahan ENTERED: 05/10/23 13:14 SP TYPE: EGD BIOPSY OT DR: DO Dr. Nurys Clifford MD Dr. Rahsaan Friend, Tissues: A - Duodenum, NOS B - Esophagus, NOS Procedures: Special Stain Group II Surgery Specimen Level IV Alcian Blue/PAS (control) HEADER OPERATION: EGD with biopsy PRE-OP DIAGNOSIS: Intractable cyclical vomiting with nausea, Abdominal pain TISSUE SUBMITTED: A- Duodenal biopsy, B- Distal esophagus biopsy MICROSCOPIC DIAGNOSIS A. Duodenal, biopsy; No pathologic change. B. Distal esophagus, biopsy; Gastroesophageal junctional mucosa with mild chronic inflammation. Focal changes of reflux. No evidence of goblet cell metaplasia. See comment. / 05/11/23 COMMENT B. Alcian blue/PAS stain with matched control supports the above diagnosis. MICROSCOPIC DESCRIPTION Slides are reviewed. GROSS DESCRIPTION A. Received in fixative is one container labeled with the patient's name and designated Duodenal biopsy. The specimen consists of two irregular fragments of light glynn soft tissue that in aggregate measure 0.6 x 0.3 x 0.1 cm. The specimen is totally submitted in one cassette. B. Received in fixative is one container labeled with the patient's name and designated Distal esophagus biopsy. The specimen consists of multiple irregular fragments of light glynn soft tissue that in aggregate measure 0.8 x 0.6 x 0.1 cm. The specimen is totally submitted in one cassette. / 05/10/2023 TC:3 CPT: 61655l8,48655
--- NOTE | 2023-05-10 10:43 | OP.EGD_ITS ---
Patient Name: Gary Gutierrez Procedure Date: 05/10/2023 10:22 AM Date of : 1960 Age: 63 Procedure: Upper GI endoscopy Indications: Epigastric abdominal pain, Failure to respond to medical treatment Providers: Gene Jiménez DO Medicines: Monitored Anesthesia Care Patient Profile: This is a 63 year old male. Refer to note in patient chart for documentation of history and physical. Patient has symptoms of acute epigastric abdominal pain, chronic nausea and chronic vomiting. Complications: No immediate complications. Procedure: Pre-Anesthesia Assessment: - Prior to the procedure, a History and Physical was performed, and patient medications and allergies were reviewed. The risks and benefits of the procedure and the sedation options and risks were discussed with the patient. All questions were answered and informed consent was obtained. Patient identification and proposed procedure were verified by the physician. Mental Status Examination: normal. Respiratory Examination: clear to auscultation. Prophylactic Antibiotics: The patient does not require prophylactic antibiotics. Prior Anticoagulants: The patient has taken no anticoagulant or antiplatelet agents. ASA Grade Assessment: II - A patient with mild systemic disease. After reviewing the risks and benefits, the patient was deemed in satisfactory condition to undergo the procedure. The anesthesia plan was to use monitored anesthesia care (MAC). Immediately prior to administration of medications, the patient was re-assessed for adequacy to receive sedatives. The heart rate, respiratory rate, oxygen saturations, blood pressure, adequacy of pulmonary ventilation, and response to care were monitored throughout the procedure. The physical status of the patient was re-assessed after the procedure. After obtaining informed consent, the endoscope was passed under direct vision. Throughout the procedure, the patient's blood pressure, pulse, and oxygen saturations were monitored continuously. The gastroscope was introduced through the mouth, and advanced to the second part of duodenum. The upper GI endoscopy was accomplished without difficulty. The patient tolerated the procedure well. Scope In: 10:31:25 AM Scope Out: 10:34:42 AM Total Procedure Duration Time 0 hours 3 minutes 17 seconds Findings: There were esophageal mucosal changes suggestive of short-segment Huynh's esophagus present in the lower third of the esophagus. The maximum longitudinal extent of these mucosal changes was 3 cm in length. Mucosa was biopsied with a cold forceps for histology in a targeted manner at intervals of 1 cm in the lower third of the esophagus. One specimen bottle was sent to pathology. Verification of patient identification for the specimen was done. Estimated blood loss was minimal. Bilious fluid was found in the entire examined stomach. Patchy mildly erythematous mucosa without active bleeding and with no stigmata of bleeding was found in the duodenal bulb and in the first portion of the duodenum. Biopsies were taken with a cold forceps for histology. Verification of patient identification for the specimen was done. Estimated blood loss was minimal. 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 Biopsied. - Bilious gastric fluid. - Erythematous duodenopathy. Biopsied. - Bile acid reflux likely leading to Huynh's esophagus -Bile acid reflux possibly secondary to marijuana hyperemesis syndrome Recommendation: - Discharge patient to home. - Resume previous diet. - Continue present medications. - Await pathology results. - Repeat upper endoscopy in 1 year for surveillance. Procedure Code(s): --- Professional --- 59768, Esophagogastroduodenoscopy, flexible, transoral; with biopsy, single or multiple CPT copyright 2021 [employer]. All rights reserved. The codes documented in this report are preliminary and upon applied mathematician review may be revised to meet current compliance requirements. Gene Jiménez DO 05/10/2023 10:43:11 AM This report has been signed electronically. Number of Addenda: 0 Note Initiated On: 05/10/2023 10:22 AM
--- NOTE | 2023-05-10 10:44 | OP.CCLET_ITS ---
05/10/2023 Nurys Soares MD [address] [place] [address] [place] [address] Re : Upper GI endoscopy procedure for Gary Rizviley Dear Dr. Soares This procedure was performed on Wednesday, May 10, 2023. My impressions and recommendations are as follows: Impressions : - Esophageal mucosal changes suggestive of short-segment Huynh's esophagus. Biopsied. - Bilious gastric fluid. - Erythematous duodenopathy. Biopsied. - Bile acid reflux likely leading to Huynh's esophagus -Bile acid reflux possibly secondary to marijuana hyperemesis syndrome Recommendations : - Discharge patient to home. - Resume previous diet. - Continue present medications. - Await pathology results. - Repeat upper endoscopy in 1 year for surveillance. My findings are described in the full procedure note, which is enclosed. If I can be of further assistance, please feel free to contact me at . Sincerely, Gene Jiménez, 05/10/2023 10:43:11 AM This report has been signed electronically.
[2023-05-10] MEDS: Potassium Chloride Oral Tablet 20 MEQ 60 MEQ PO (11:48)
[2023-05-10] MEDS: Citalopram 10 MG Tablet PO (11:49)
[2023-05-10] MEDS: Sucralfate 1 GM Tablet PO ×3 (11:49→20:00)
[2023-05-10] MEDS: Enoxaparin 40 MG/0.4 ML Syringe SC (11:49)
[2023-05-10] MEDS: Pantoprazole Sodium 40 MG in 0.9% Normal Saline (100mL MB+) 100 ML 330 MG IV ×2 (11:51→20:00)
[2023-05-10 12:09] LABS: Anti-Centromere B Ab <0.2 AI (0.0-0.9); Anti-Chromatin <0.2 AI (0.0-0.9); Anti-Jo <0.2 AI (0.0-0.9); Anti-Scleroderma-70 AB <0.2 AI (0.0-0.9); Anti-dsDNA Ab <1 IU/mL (0-9); RNP Ab 3.5 AI (0.0-0.9); SJOGREN'S Anti-SS-A test < 0.2 AI (0.0-0.9); SJOGREN'S Anti-SS-B test < 0.2 AI (0.0-0.9); Smith Ab <0.2 AI (0.0-0.9)
--- NOTE | 2023-05-10 14:50 | PN_ITS ---
Subjective Subjective Patient seen and examined. He had no complaints. He had an uneventful night. Review of systs otherwise negative. He had EGD today which showed esophageal mucosal changes suggestive of short segment Chris's esophagus. Objective Data Objective Data Vital Signs: Vital Signs Temp Pulse Resp BP Pulse Ox O2 Del Method O2 Flow Rate 98.3 F 48 L 14 107/77 92 Room Air 2 05/10/23 14:30 05/10/23 14:30 05/10/23 14:30 05/10/23 14:30 05/10/23 14:30 05/10/23 14:30 05/08/23 22:52 Oxygen Flow Rate (L/min) 2 Oxygen Delivery Method Room Air Weight: 236 lb 1.841 oz Body Mass Index (BMI) 31.1 Intake & Output: Intake and Output for Last 24 Hours 05/08/23 05/09/23 05/10/23 23:59 23:59 23:59 Intake Total 1546.5 / 1746.5 1620.0 / 1620.0 995 / 995 Balance 1546.5 / 1746.5 1620.0 / 1620.0 995 / 995 Lab / Micro Data 05/10/23 06:10 05/10/23 06:10 Labs: Laboratory Results - last 24 hr 05/09/23 05:35: SHYANN-1 Antibody <0.2, SS-A/Ro IgG Antibody < 0.2, SS-B/La IgG Antibody < 0.2, Sm (Hernández) Antibody <0.2, [employer] Antibody 3.5 H, Scl-70 Scleroderma Ab <0.2, Double Strand DNA Ab <1, Centromere B Antibody <0.2, Hepatitis A IgM Ab Negative, Hep Bs Antigen Negative, Hep B Core IgM Ab Negative, Hepatitis C Ab (E IA) Non Reactive, Hep C Ab Comment Comment 05/10/23 06:10: WBC 7.1, RBC 4.23 L, Hgb 13.7, Hct 41.1, MCV 97.2 H, MCH 32.4 H, MCHC 33.3, RDW Std Deviation 53.3 H, RDW Coeff of Tiffany 14.9 H, Plt Count 205, MPV 10.6, Immature Gran % (Auto) 0.600, Neut % (Auto) 60.5, Lymph % (Auto) 27.2, [place] % (Auto) 8.4, Eos % (Auto) 2.5, Baso % (Auto) 0.8, Absolute Neuts (auto) 4. 3, Absolute Lymphs (auto) 1.94, Nucleated RBC % 0, Sodium 137, Potassium 3.0 L, Chloride 105, Carbon Dioxide 27.0, Anion Gap 5, BUN 9, Creatinine 0.88, Estim Creat Clear Calc 111.76, Est GFR (MDRD) Af Amer 113, Est GFR (MDRD) Non-Af 94, BUN/Creatinine Ratio 10.3, Glucose 122 H, Calcium 8.4 L Physical Exam Const alert, oriented x3, no apparent distress and well nourished General Appearance: cooperative, comfortable and well developed HEENT normocephalic, head/scalp atraumatic, hearing grossly normal bilaterally, nasal mucous membranes and turbinates normal, moist oral mucous membranes and oropharynx normal Eyes PERRL, EOMs intact bilaterally and conjunctivae normal Neck full ROM, no lymphadenopathy, supple and no JVD Lymph Lymphatic: no lymphadenopathy noted and no lymphedema noted Chest inspection of chest normal Resp normal respiratory effort, normal air movement, no use of accessory muscles and clear to auscultation bilaterally Cardio regular rate, regular rhythm, S1 normal heart sound, S2 normal heart sound, no murmurs and peripheral pulses 2+ throughout GI normal to inspection, nondistended, normoactive bowel sounds, soft to palpation, non-tender and non-distended Back/Spine normal ROM Extremity normal to inspection, full ROM, normal capillary refill, no clubbing, cyanosis or edema, no calf tenderness and no pedal edema General Extremity: no tenderness to palpation of joints or extremities Skin no rashes or lesions noted General Skin Exam: no breakdown Neuro CN's II-XII intact bilaterally, moves all extremities, no focal motor deficits, no sensory deficits noted and deep tendon reflexes 2+ bilaterally Speech: speech normal Motor Exam: strength 5/5 throughout and general weakness Psych mental status grossly normal, thought process normal, cooperative and affect no rmal Appearance: appropriate Assessment & Plan Assessment/Plan (1) Intractable cyclical vomiting with nausea: (2) Abdominal pain: PLAN: Plan #Intractable nausea and vomiting * vomiting has improved, as well as nausea * He states he does use marijuana but quit about 2 weeks ago. * He is feeling better. * had EGD which showed esophageal mucosal changes suggestive of circumflex segment Huynh's esophagus which was biopsied as well as bilious gastric fluid and erythematous duodenopathy which was biopsied. He also had bile acid reflux possibly secondary to marijuana hyperemesis syndrome and leading to Huynh's esophagus. * IV Zofran as needed * #GERD: On pantoprazole and sucralfate. Due to prophylaxis: SCDs #? Liver and pancreatic lesions * CT of the abdomen and pelvis done in December 2022 showed a focal area of possible enhancement in the left hepatic lobe injury 1.[address] abdomen and pelvis on 04/07/2023 which showed a 7 mm hypodense area in the pancreatic tail. CAT scan done at of the abdomen and pelvis on 05/07/2023 did not show any of these lesions. * GI consulted. * #Hypokalemia: Potassium is 3. Will replace and trend. #Elevated liver enzymes: Total bilirubin was 1.2 and AST, ALT and ALP were only minimally elevated. Follow-up with GI on outpatient basis. #History of cannabinoid use: * Patient used to smoke marijuana very heavily but says he quit just about 2 weeks ago though by the admit note his last use was 5 days prior to admission. * Patient counseled that his symptoms might be due to marijuana use but patient denies this as he says when he was much younger he was a pothead and used marijuana all the time but did not have the symptoms. * counseled to quit. DVT prophylaxis: Lovenox Charges/Coding Visit Charges Inpatient E&M: 83259 Subs Hosp L2
[2023-05-10 15:08] LABS: Cytoplasmic Ab (C-ANCA) <1:20 titer (Neg:<1:20); Deamidated Gliadin IgA 5 units (0-19); Deamidated Gliadin IgG 2 units (0-19); Endomysial Antibody IgA Negative (Negative); Immunoglobulin A 271 mg/dL (61-437); Perinuclear Ab (P-ANCA) <1:20 titer (Neg:<1:20); t-Transglutaminase IgA <2 U/mL (0-3)
--- NOTE | 2023-05-10 16:10 | NURSING ---
All documentation by nursing manager Uriel Terrell reviewed by nursing educator Rosemary August RN.
--- NOTE | 2023-05-10 16:19 | CASEMGMT ---
Pt had insurance question. RN CM into pt room, pt states the ID number was incorrect. TC to Registration, he provided number and it verified per Arlene. Pt denies any further questions at this time.
[2023-05-10] MEDS: 0.9% Saline Lock 10 ML Syringe IV (22:45)
[2023-05-11] MEDS: 0.9% Saline Lock 10 ML Syringe IV (05:51)
[2023-05-11] MEDS: proCHLORPERazine 10 MG/2 ML Vial 5 MG IV (05:51)
[2023-05-11 06:00] VITALS: BP 151/95; PULSE 52; RESP 16; TEMP 36.6; O2SAT 96
[2023-05-11] MEDS: Polyethylene Glycol 3350 17 GM PACKET PO (07:25)
[2023-05-11 07:34] LABS: Absolute Lymphocyte Count 1.88 X10^3/uL (0.83-4.51); Absolute Neutrophil Count 3.5 X10^3/uL (2.0-7.7); Basophil# 0.06 X10^3/uL; Eosinophil# 0.19 X10^3/uL; Eosinophils% 3.1 % (0-5); Hematocrit 42.2 % (40-54); Lymphocyte # 1.88 X10^3/ul (0.83-4.51); Lymphocyte % 30.4 % (19-41); Mean Corp Hgb Conc 33.2 g/dL (32-36); Mean Corpuscular Volume 96.6 fL (80-94); Mean Platelet Vol. 11.2 fl (6.2-12.0); Monocyte# 0.52 X10^3/uL; Monocyte% 8.4 % (0-10); NRBC Flagged by Analyzer 0 % (0-5); Neutrophil # 3.49 X10^3/uL (2.7-7.7); Neutrophil % 56.5 % (47-70); Platelet Count 224 K/mm3 (150-450); RBC Distribution Width CV 14.8 % (11.6-14.6); RBC Distribution Width SD 53.3 fl (35.1-43.9); Red Blood Count 4.37 M/mm3 (4.6-6.2); White Blood Count 6.2 K/mm3 (4.4-11.0)
[2023-05-11 08:11] LABS: Anion Gap 7 (5-15); BUN 9 mg/dL (7-18); BUN/Creat Ratio 9.4 RATIO (10-20); Calcium,Total 9.2 mg/dL (8.5-10.1); Chloride 104 mmol/L (98-107); Creatinine, Serum 0.96 mg/dL (0.70-1.30); EST Glomerular Filtration Rate 85 mL/min (>60); Est Glom Filt Rate - Afr Amer 102 mL/min (>60); Estimated Creatinine Clearance 102.44 ml/min; Glucose 140 mg/dL (74-106); Potassium 3.3 mmol/L (3.5-5.1); Sodium Level 137 mmol/L (136-145)
[2023-05-11] MEDS: Enoxaparin 40 MG/0.4 ML Syringe SC (10:04)
[2023-05-11] MEDS: Pantoprazole Sodium 40 MG in 0.9% Normal Saline (100mL MB+) 100 ML 330 MG IV (10:06)
--- NOTE | 2023-05-11 10:26 | DCINST_ITS ---
Discharge Instructions Diet Discharge Diet: Low fat / Low cholesterol Activity Discharge Activity: Return to Normal Activity Weight Bearing Status: Weight bearing as tolerated Dressing / Incision Call your doctor if you observe: Fever of 101 or Higher, Shortness of breath, Dizziness, Swelling in the ankles, Chest pain, Increased palpitations (irregular heartbeat) and Uncontrolled pain Follow Up Care Test Results: Test results from this visit will be discussed in further detail at your follow- up appointment, if applicable. 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 Attending Provider: Bre Chester Primary Care Provider: Nurys Soares Consulting Providers: Gene Jiménez; Resee Segovia Instructions Patient Instructions: ED Cyclic Vomiting Syndrome Discharge Orders/Prescriptions Prescriptions: New ondansetron 4 mg tablet,disintegrating 4 mg PO Q8H PRN (Reason: nausea and vomiting) Qty: 10 0RF pantoprazole 40 mg tablet,delayed release (DR/EC) 40 mg PO DAILY Qty: 30 2RF Continued pantoprazole [Protonix] 40 mg tablet,delayed release (DR/EC) 40 mg PO DAILY Qty: 90 1RF sucralfate [Carafate] 1 gram tablet 1 g PO BID Qty: 20 0RF cholecalciferol (vitamin D3) [Vitamin D3] 25 mcg (1,000 unit) tablet,chewable 25 mcg PO DAILY ondansetron 4 mg tablet,disintegrating 4 mg PO Q8H PRN (Reason: nausea and vomiting) Qty: 30 0RF Referrals / Follow Up: Nurys Soares MD [Primary Care Provider] - Within 1 Week Gene Jiménez DO [Med Staff - Active Staff] - Within 2 Weeks Disposition Disposition (needs filled in before D/C Order can be placed): Home, Self Care
--- NOTE | 2023-05-11 10:29 | DS.PCM_ITS ---
Providers Date of Admission: 05/08/23 Date of Discharge: 05/11/23 Primary Care Physician: Dr. Nurys Soares MD Consultations 05/08/23 16:24 Consult: Gastroenterology Routine Consulting Provider: JessyGene Reason for Consult: intractable nausea/vomiting EMERGENT Consult: No MD Notified: Yes Date Notified: 05/08/23 Time Notified: 15:16 Method of Notification: Text Reason For Visit: INTRACTABLE NAUSEA/VOMITING Diagnosis Discharge Diagnosis (1) Intractable cyclical vomiting with nausea: Status: Acute Code(s): R11.15 - Cyclical vomiting syndrome unrelated to migraine (2) Abdominal pain: Status: Acute Code(s): R10.9 - Unspecified abdominal pain Plan #Intractable nausea and vomiting * vomiting has improved, as well as nausea * He states he does use marijuana but quit about 2 weeks ago. * He is feeling better. * had EGD which showed esophageal mucosal changes suggestive of circumflex segment Huynh's esophagus which was biopsied as well as bilious gastric fluid and erythematous duodenopathy which was biopsied. He also had bile acid reflux possibly secondary to marijuana hyperemesis syndrome and leading to Huynh's esophagus. * IV Zofran as needed * #GERD: On pantoprazole and sucralfate. Due to prophylaxis: SCDs #? Liver and pancreatic lesions * CT of the abdomen and pelvis done in December 2022 showed a focal area of possible enhancement in the left hepatic lobe injury 1.[address] abdomen and pelvis on 04/07/2023 which showed a 7 mm hypodense area in the pancreatic tail. CAT scan done at of the abdomen and pelvis on 05/07/2023 did not show any of these lesions. * GI consulted. * #Hypokalemia: Potassium is 3. Will replace and trend. #Elevated liver enzymes: Total bilirubin was 1.2 and AST, ALT and ALP were only minimally elevated. Follow-up with GI on outpatient basis. #History of cannabinoid use: * Patient used to smoke marijuana very heavily but says he quit just about 2 weeks ago though by the admit note his last use was 5 days prior to admission. * Patient counseled that his symptoms might be due to marijuana use but patient denies this as he says when he was much younger he was a pothead and used marijuana all the time but did not have the symptoms. * counseled to quit. DVT prophylaxis: Lovenox Medications at Discharge Home Medications pantoprazole 40 mg tablet,delayed release (Protonix) 40 mg PO DAILY #90 tabs 02/16/23 ondansetron 4 mg disintegrating tablet 4 mg PO Q8H PRN nausea and vomiting #30 tabs 05/02/23 sucralfate 1 gram tablet (Carafate) 1 g PO BID #20 tabs 05/07/23 cholecalciferol (vitamin D3) 25 mcg (1,000 unit) chewable tablet (Vitamin D3) 25 mcg PO DAILY supplement 05/08/23 ondansetron 4 mg disintegrating tablet 4 mg PO Q8H PRN nausea and vomiting #10 tabs 05/11/23 pantoprazole 40 mg tablet,delayed release 40 mg PO DAILY #30 tabs 05/11/23 Hospital Course Operations None Procedures EGD Summary of Care Provided Minutes Spent on Discharge: 45 Hospital Course: Patient is a 63-year-old male with a past medical history as outlined was admitted through the ED on 05/08/2023 with a complaint of intractable nausea and vomiting which started a few days prior to admission. He had been seen in the ED the day before this admission and he had a CAT scan which showed fatty liver disease but no other acute pathology. He was therefore discharged home. He s aid he had had similar attacks as he called them every few years and his last one had been about 3 weeks ago. He had never had an upper scope done before. Patient had significant retching with his vomiting. Patient smoked cannabis and said he had a history of alcohol and cocaine abuse but had been clean from these for about 20 years. He had however persisted and smoking Numbers though he said he had cut down. He had gone to his PCP about a month ago he was told that his vomiting could be due to his cyclical vomiting from marijuana use though patient did not think this was the cause. She was admitted and managed for severe intractable vomiting. Gastroenterology was consulted. He had EGD which showed evidence of some gastritis concerning for Huynh's esophagus. However it was thought that his symptoms were all due to cyclical vomiting from marijuana. Patient was counseled to quit using marijuana. He tolerated a diet and did well. He remained stable and was discharged on 05/11/2023. He is to follow-up with his primary care doctor within 1 to 2 weeks. He is also to follow-up with gastroenterology in 1 to 2 weeks. Patient seen and examined prior to discharge. He had no active complaints and had an uneventful night. Review of systems otherwise negative. Labs and vitals reviewed. Home medication reviewed and reconciled. Physical Exam Const alert, oriented x3, no apparent distress and well nourished General Appearance: cooperative, comfortable and well developed HEENT normocephalic, head/scalp atraumatic, hearing grossly normal bilaterally, nasal mucous membranes and turbinates normal, moist oral mucous membranes and oropharynx normal Mouth: oral and palatal mucosa normal Eyes PERRL, EOMs intact bilaterally and conjunctivae normal Neck full ROM, no lymphadenopathy, supple and no JVD Lymph Lymphatic: no lymphadenopathy noted and no lymphedema noted Chest inspection of chest normal Resp normal respiratory effort, normal air movement, no use of accessory muscles and clear to auscultation bilaterally Cardio regular rate, regular rhythm, S1 normal heart sound, S2 normal heart sound, no murmurs and peripheral pulses 2+ throughout GI normal to inspection, nondistended, normoactive bowel sounds, soft to palpation, non-tender and non-distended Back/Spine normal ROM Extremity normal to inspection, full ROM, normal capillary refill, no clubbing, cyanosis or edema, no calf tenderness and no pedal edema General Extremity: no tenderness to palpation of joints or extremities Skin no rashes or lesions noted General Skin Exam: no breakdown Neuro oriented x3, CN's II-XII intact bilaterally, moves all extremities, no focal motor deficits, no sensory deficits noted and deep tendon reflexes 2+ bilaterally Speech: speech normal Motor Exam: strength 5/5 throughout and general weakness Psych mental status grossly normal, thought process normal, cooperative and affect normal Appearance: appropriate Weight / BMI Weight Weight: 236 lb 1.841 oz Body Mass Index (BMI) 31.1 ABG / Lab / Microbiology Data 05/11/23 06:22 05/11/23 06:22 Laboratory: Laboratory Results - last 24 hr 05/09/23 05:35: IgA 271, c-ANCA Antibody <1:20, Atypical p-ANCA <1:20, p-ANCA Antibody <1:20, SHYANN-1 Antibody <0.2, SS-A/Ro IgG Antibody < 0.2, SS-B/La IgG Antibody < 0.2, Sm (Hernández) Antibody <0.2, REAL ESTATE SUBAGENT Antibody 3.5 H, Scl-70 Scleroderma Ab <0.2, Double Strand DNA Ab <1, Centromere B Antibody <0.2, Endomysial IgA Ab Negative, Tiss Transglutamin IgG <2, Tiss Transglutamin IgA <2, Anti-Gliadin IgG Ab 2, Anti-Gliadin IgA Ab 5 05/11/23 06:22: WBC 6.2, RBC 4.37 L, Hgb 14.0, Hct 42.2, MCV 96.6 H, MCH 32.0, MCHC 33.2, RDW Std Deviation 53.3 H, RDW Coeff of Tiffany 14.8 H, Plt Count 224, MPV 11.2, Immature Gran % (Auto) 0.600, Neut % (Auto) 56.5, Lymph % (Auto) 30.4, Butts % (Auto) 8.4, Eos % (Auto) 3.1, Baso % (Auto) 1.0, Absolute Neuts (auto) 3.5, Absolute Lymphs (auto) 1.88, Nucleated RBC % 0, Sodium 137, Potassium 3.3 L , Chloride 104, Carbon Dioxide 26.0, Anion Gap 7, BUN 9, Creatinine 0.96, Estim Creat Clear Calc 102.44, Est GFR (MDRD) Af Amer 102, Est GFR (MDRD) Non-Af 85, BUN/Creatinine Ratio 9.4 L, Glucose 140 H, Calcium 9.2 D/C Instructions Discharge Diet: Low fat / Low cholesterol Discharge Activity: Return to Normal Activity Weight Bearing Status: Weight bearing as tolerated Call your doctor if you observe: Fever of 101 or Higher, Shortness of breath, Dizziness, Swelling in the ankles, Chest pain, Increased palpitations (irregular heartbeat) and Uncontrolled pain Meaningful Use Info Meaningful Use Diagnoses (Choose all that apply): None applicable 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 Attending Provider: Bre Chester Primary Care Provider: Nurys Soares Consulting Providers: Gene Jiménez; Reese Segovia Instructions Patient Instructions: ED Cyclic Vomiting Syndrome Discharge Orders/Prescriptions Prescriptions: New ondansetron 4 mg tablet,disintegrating 4 mg PO Q8H PRN (Reason: nausea and vomiting) Qty: 10 0RF pantoprazole 40 mg tablet,delayed release (DR/EC) 40 mg PO DAILY Qty: 30 2RF Continued pantoprazole [Protonix] 40 mg tablet,delayed release (DR/EC) 40 mg PO DAILY Qty: 90 1RF sucralfate [Carafate] 1 gram tablet 1 g PO BID Qty: 20 0RF cholecalciferol (vitamin D3) [Vitamin D3] 25 mcg (1,000 unit) tablet,chewable 25 mcg PO DAILY ondansetron 4 mg tablet,disintegrating 4 mg PO Q8H PRN (Reason: nausea and vomiting) Qty: 30 0RF Referrals / Follow Up: Nurys Soares MD [Primary Care Provider] - Within 1 Week Gene Jiménez DO [Med Staff - Active Staff] - Within 2 Weeks Disposition Disposition (needs filled in before D/C Order can be placed): Home, Self Care Charges/Coding Visit Charges Inpatient E&M: 03475 Disch Hosp >30min
[2023-05-11 11:02] VITALS: BP 151/95; PULSE 52; RESP 16; TEMP 36.6; O2SAT 96
--- NOTE | 2023-05-11 11:31 | PHA.DC.MC.R ---
Pharmacy [facility] has performed discharge medication reconciliation and counseling for this patient. The patient's discharge medication list was reviewed for discrepancies and discrepancies were resolved. The patient was counseled on the following discharge medications and changes in medications for homegoing were reviewed. 1. PROTONIX 2. ZOFRAN The Reason for Use, instructions for use, and potential side effects were reviewed for all new medications. The patient's questions regarding all of their medications were answered. The patient was able to verbally demonstrate an understanding of their discharge medications. Medications at Discharge Home Medications pantoprazole 40 mg tablet,delayed release (Protonix) 40 mg PO DAILY #90 tabs 02/16/23 ondansetron 4 mg disintegrating tablet 4 mg PO Q8H PRN nausea and vomiting #30 tabs 05/02/23 sucralfate 1 gram tablet (Carafate) 1 g PO BID #20 tabs 05/07/23 cholecalciferol (vitamin D3) 25 mcg (1,000 unit) chewable tablet (Vitamin D3) 25 mcg PO DAILY supplement 05/08/23 ondansetron 4 mg disintegrating tablet 4 mg PO Q8H PRN nausea and vomiting #10 tabs 05/11/23 pantoprazole 40 mg tablet,delayed release 40 mg PO DAILY #30 tabs 05/11/23
[2023-05-11 17:07] LABS: ACCA 18 units (0-90); AMCA 31 units (0-100); Chromogranin A 61.2 ng/mL (0.0-101.8); Gastrin, Serum 26 pg/mL (0-115); gASCA 2 units (0-50)
[2023-05-17 14:52] LABS: ALCA 10 units (0-60)
== END 2023-05-11 11:02 | disposition home or self-care (01) | DRG 395 ==
LOC: ED 15:17 → MS3 16:05
PROVIDERS: Internal Medicine Gastroenterology; Admitting Provider Hospitalist; Emergency Provider Emergency Medicine; PCP Internal Medicine; Visit Provider Student in an Organized Health Care Education/Training Program
PROC: 0DJ08ZZ Inspection of Upper Intestinal Tract, Via Natural or Artificial Opening Endoscopic (ICD-10-PCS; CPT 43235; principal; 2023-05-10 09:55)
DX: R11.15 Cyclical vomiting syndrome unrelated to migraine (principal); F12.988 Cannabis use, unspecified with other cannabis-induced disorder; E66.9 Obesity, unspecified; K76.0 Fatty (change of) liver, not elsewhere classified; E87.6 Hypokalemia; K21.9 Gastro-esophageal reflux disease without esophagitis; M54.9 Dorsalgia, unspecified; Z87.891 Personal history of nicotine dependence; Z68.31 Body mass index [BMI] 31.0-31.9, adult; G89.29 Other chronic pain; K29.70 Gastritis, unspecified, without bleeding; Z79.899 Other long term (current) drug therapy; Z59.86 Financial insecurity; K76.9 Liver disease, unspecified
CPT/HCPCS: 43239; 36415; 78264; 80048; 80053; 80074; 80307; 80320; 81001; 82150; 82784; 82941; 83516; 83605; 83690; 84439; 84443; 84481; 85025; 85027; 85652; 86036; 86140; 86225; 86235; 86255; 86256; 86316; 86671; 88305; 88313; 93005; 96361; 96365; 96366; 96367; 96368; 96372; 96375; 96376; 99221; 99284; 99406; A9541; J7030; J7120; A4216; G0378; G0480; J2405; J3490

== ENCOUNTER → 2023-11-23 | Outpatient (CLI) | payer OTHER, SELFPAY ==
[2023-11-23 11:27] LABS: Bacteria 0 SEEN /hpf (None Seen); Mucous, Urine 0 SEEN /hpf (<or=2+); Red Blood Cells-Urine 0 SEEN /hpf (0-5); Squamous Epithelial Cells - UA 0 SEEN /hpf (0-5); White Blood Cells 0 SEEN /hpf (0-5)
[2023-11-23 15:01] LABS: Color, Urine Yellow (Yellow); Glucose, Dipstick 1000 mg/dl (Normal); Leukocyte Esterase-Dipstick Negative /ul (Negative); Nitrite-Dipstick Negative (Negative); Occult Blood-Urine Negative /ul (Negative); Protein-Dipstick 30 mg/dl (Negative); Urine Bilirubin Dipstick Negative (Negative); Urine Clarity Clear (Clear); Urine Urobilinogen Normal (Normal)
[2023-11-23 15:17] LABS: Vitamin B12 624 pg/mL (211-911)
[2023-11-23 15:18] LABS: Ketone-Dipstick 150 mg/dl (Negative)
[2023-11-23 15:22] LABS: Fine Granular Cast- Urine 5-10 SEEN /lpf (0-5)
[2023-11-23 15:26] LABS: ALB/GLOB Ratio 1.2 RATIO (0.9-2.4); AST(SGOT) 29 U/L (15-37); Alanine Aminotransfer ALT/SGPT 51 U/L (16-61); Albumin, Serum 4.2 g/dL (3.2-5.0); Alkaline Phosphatase 68 U/L (45-117); Anion Gap 10 (5-15); BUN 14 mg/dL (7-18); BUN/Creat Ratio 12.8 RATIO (10-20); Calcium,Total 9.8 mg/dL (8.5-10.1); Chloride 101 mmol/L (98-107); Creatinine, Serum 1.09 mg/dL (0.70-1.30); EST Glomerular Filtration Rate 73 mL/min (>60); Est Glom Filt Rate - Afr Amer 88 mL/min (>60); Globulin 3.5 g/dL (2.2-4.2); Glucose 385 mg/dL (74-106); PSA,Total - Annual Screen 0.29 ng/mL (0.00-4.00); Potassium 4.6 mmol/L (3.5-5.1); Protein, Total 7.7 g/dL (6.4-8.2); Sodium Level 133 mmol/L (136-145)
[2023-11-23 15:54] LABS: Hemoglobin A1c 11.4 % (3.8-5.6)
== END | disposition home or self-care (01) ==
PROVIDERS: PCP Internal Medicine; Referring Provider Nurse Practitioner; Visit Provider Nurse Practitioner
DX: R35.89 Other polyuria (principal); R53.83 Other fatigue
CPT/HCPCS: 36415; 80053; 81001; 82607; 83036; 84153; G0103

== ENCOUNTER → 2023-11-27 | Outpatient (CLI) | payer OTHER, SELFPAY | END | disposition home or self-care (01) | LOC: PSN 07:03 | PROVIDERS: PCP Internal Medicine; Referring Provider Nurse Practitioner; Visit Provider Nurse Practitioner | DX: R06.02 Shortness of breath (principal) | CPT/HCPCS: 94060; 94726; 94729 ==